=== PATIENT | male | born 1960 | race Caucasian/White ===

== ENCOUNTER 2017-08-17 15:35 | Inpatient (IN) | payer BC, OTHER ==
[~2017-08-17] VITALS: Ht 185.4 cm; Wt 97.1 kg
[~2017-08-17 15:35] MED LIST: DULO60CA6 PO; LEVO50TA5 PO; LISI40TA PO; OLAN5TAB3 PO; OMEP40CA5 PO; TADA10TA PO; VARE1TAB21 PO; ZOLP10TA PO
[2017-08-17] MEDS ORDERED: IV NORMAL SALINE 1,000ML 1,000 ML IV SCH (15:55)
[2017-08-17] MEDS ORDERED: VANCOMYCIN PER PHARMACY MC ONE (16:15)
[2017-08-17] MEDS ORDERED: AMPICILLIN 2 GM in IV NORMAL SALINE 100ML 100 ML IV ONE (16:15)
[2017-08-17] MEDS ORDERED: cefTRIAXone IV Push 2 GM VIAL. IVP ONE (16:30)
[2017-08-17] MEDS ORDERED: VANCOMYCIN 2 GM in IV NORMAL SALINE 500ML 500 ML IV ONE (16:30)
[2017-08-17 16:39] LABS: BASO % 0 % (0-3); EOS % 0 % (0-3); HEMATOCRIT 42.8 % (39.0-53.0); HEMOGLOBIN 15.4 g/dL (13.0-17.5); LYMPH # 0.8 x10^3/uL (1.0-4.8); LYMPH % 7 % (24-48); MEAN CORPUSCULAR HEMOGLOBIN 35 pg (25-35); MEAN CORPUSCULAR HGB CONC 36 g/dL (31-37); MEAN CORPUSCULAR VOLUME 97 fL (79-100); MONO # 0.6 x10^3/uL (0.0-1.1); MONO % 5 % (0-9); NEUT # 10.2 x10^3uL (1.8-7.7); NEUT % 88 % (31-73); PLATELET COUNT 132 x10^3/uL (140-400); RED BLOOD COUNT 4.41 x10^6/uL (4.30-5.70); RED CELL DISTRIBUTION WIDTH 12.7 % (11.5-14.5); WHITE BLOOD COUNT 11.6 x10^3/uL (4.0-11.0)
[2017-08-17] MEDS ORDERED: KETOROLAC 30 MG/ML VIAL. IV ONE (16:45)
[2017-08-17 16:46] LABS: CALCIUM 8.4 mg/dL (8.5-10.1); CREATININE 1.5 mg/dL (0.7-1.3); GFR 48.6
[2017-08-17 16:48] LABS: POTASSIUM 3.3 mmol/L (3.5-5.1)
[2017-08-17 17:11] LABS: INFLUENZA A PATIENT NEGATIVE (NEGATIVE); INFLUENZA B PATIENT NEGATIVE (NEGATIVE)
[2017-08-17] MEDS ORDERED: IV NORMAL SALINE 1,000ML 1,000 ML IV ONE (17:15)
[2017-08-17] MEDS ORDERED: ACETAMINOPHEN 500 MG TABLET PO ONE (17:45)
[2017-08-17] MEDS ORDERED: diphenhydrAMINE 50 MG/ML VIAL IVP ONE (17:45)
[2017-08-17] MEDS ORDERED: METOCLOPRAMIDE HCL 10 MG/2 ML VIAL. IV ONE (17:45)
[2017-08-17 18:06] LABS: CSF PROTEIN 63.1 mg/dL (15.0-45.0)
[2017-08-17 18:13] LABS: BILIRUBIN,URINE NEG (NEG); CLARITY,URINE CLOUDY; COLOR,URINE AMBER; GLUCOSE,URINE 500 mg/dL (NEG); NITRITE,URINE NEG (NEG); UROBILINOGEN,URINE 8 mg/dL (0.2 mg/dL)
[2017-08-17 18:14] LABS: BACTERIA,URINE 0 /HPF (0-FEW); RBC,URINE 20-40 /HPF (0-2); SQUAMOUS EPITHELIAL CELL,UR MOD /LPF
--- NOTE | 2017-08-17 18:17 | EKG ---
[address] [address] Test Date: 2017-08-17 Test Time: 16:04:43 Pat Name: SYDNEE BURNETTE Department: Room: Gender: M Customer Quality Specialist: PRINCESS : 1960 Requested By: TAMARA SABILLON Order Number: [id number] Reading MD: Measurements Intervals [place] Rate: 113 P: -13 MO: 122 QRS: -17 QRSD: 80 T: 34 QT: 304 QTc: 422 Interpretive Statements SINUS TACHYCARDIA LEFT ATRIAL ABNORMALITY LEFTWARD AXIS ABNORMAL ECG RI6.01 No previous ECG available for comparison
[2017-08-17 18:24] LABS: CSF CLARITY CLEAR; CSF COLOR COLORLESS
[2017-08-17] MEDS ORDERED: ONDANSETRON ODT 4 MG TAB.RAPDIS PO PRN (19:00)
[2017-08-17 19:40] VITALS: BP 101/71
[2017-08-17 19:42] LABS: CSF MON % 1 %; CSF PMN % 1 %; CSF RBC COUNT 9; CSF WBC COUNT 2
--- NOTE | 2017-08-17 20:03 | PHYS DOC ---
Past History Past Medical History: Diabetes, GERD, Hypertension Past Surgical History: No Surgical History Alcohol Use: Occasionally Drug Use: None Adult General Chief Complaint Chief Complaint: FEVER HPI HPI 57-year-old male presents with fever, neck pain, headache, and decreased balance. The patient was seen at [facility] yesterday where he had a workup that included head CT, lab work, and x-rays. We determined he had a sinus infection and placed him on Augmentin. The patient's headache has gotten significantly worse. His neck stiffness is worse. He continues to have a fever greater than 103. Patient had an appointment with his PCP this afternoon who sent him here to the ED for meningitis rule out. She rates the headache a 9 out of 10. His neck stiffness is 7 out of 10. He denies any recent long distance travel or international travel. He has not been in any known environment with sick individuals or high risk individuals. The patient is a regional account executive. There is no one else sick in his household. He has had a pneumonia vaccine in the past. He is unsure if he ever had the meningitis vaccine. He denies vomiting, diarrhea, constipation, dysuria, urinary frequency, cough, or congestion. Review of Systems Review of Systems Constitutional: Fever of 103+ [] Eyes: Denies change in visual acuity, redness, or eye pain [] HENT: Denies nasal congestion or sore throat, Has headache and neck pain[] Respiratory: Denies cough or shortness of breath [] Cardiovascular: No additional information not addressed in HPI [] GI: Denies abdominal pain, nausea, vomiting, bloody stools or diarrhea [] : Denies dysuria or hematuria [] Musculoskeletal: Denies back pain or joint pain [] Integument: Denies rash or skin lesions [] Neurologic: Denies headache, focal weakness or sensory changes [] Endocrine: Denies polyuria or polydipsia [] All other systems were reviewed and found to be within normal limits, except as documented in this note. Current Medications Current Medications Current Medications Medications (Trade) Dose Ordered Sig/José Miguel Start Time Stop Time Status Last Admin Dose Admin Acetaminophen (Tylenol) 1,000 mg 1X ONCE 08/17/17 17:45 08/17/17 17:46 DC 08/17/17 17:52 1,000 MG Ampicillin Sodium 2 gm/Sodium Chloride 100 ml @ 200 mls/hr 1X ONCE 08/17/17 16:15 08/17/17 16:44 DC 08/17/17 18:13 200 MLS/HR Ceftriaxone Sodium 2 gm/ Sodium Chloride 100 ml @ 200 mls/hr 1X ONCE 08/17/17 16:15 08/17/17 16:15 DC Ceftriaxone Sodium (Rocephin) 2 gm 1X ONCE 08/17/17 16:30 08/17/17 16:31 DC 08/17/17 17:53 2 GM Diphenhydramine HCl (Benadryl) 25 mg 1X ONCE 08/17/17 17:45 08/17/17 17:46 DC 08/17/17 17:53 25 MG Ketorolac Tromethamine (Toradol) 30 mg 1X ONCE 08/17/17 16:45 08/17/17 16:46 DC 08/17/17 16:38 30 MG Metoclopramide HCl (Reglan Vial) 10 mg 1X ONCE 08/17/17 17:45 08/17/17 17:46 DC 08/17/17 17:52 10 MG Sodium Chloride 1,000 ml @ 1,000 mls/hr 1X ONCE 08/17/17 17:15 08/17/17 18:14 DC 08/17/17 17:52 1,000 MLS/HR Vancomycin HCl (Vanco Per Pharmacy) 1 each 1X ONCE 08/17/17 16:15 08/17/17 16:16 DC Vancomycin HCl 2 gm/Sodium Chloride 500 ml @ 250 mls/hr 1X ONCE 08/17/17 16:30 08/17/17 18:29 DC 08/17/17 18:13 250 MLS/HR Allergies Allergies Allergies Coded Allergies Type Severity Reaction Last Updated Verified No Known Drug Allergies 10/10/13 No Physical Exam Physical Exam Constitutional: Well developed, well nourished, mild acute distress. [] HENT: Normocephalic, atraumatic, bilateral external ears normal, oropharynx moist, no oral exudates, nose normal. [] Eyes: PERRLA, EOMI, conjunctiva normal, no discharge. [] Neck: Normal range of motion, pain with ROM testing. Mild stiffness with passive ROM[] Cardiovascular:Heart rate regular rhythm, tachycardic, no murmur [] Lungs & Thorax: Bilateral breath sounds clear to auscultation [] Abdomen: Bowel sounds normal, soft, no tenderness, no masses, no pulsatile masses. [] Skin: Warm, moist, no rash. [] Back: No tenderness, no CVA tenderness. [] Extremities: No tenderness, no cyanosis, no clubbing, ROM intact, no edema. [] Neurologic: Alert and oriented X 3, normal motor function, normal sensory function, no focal deficits noted. [] Psychologic: Affect normal, judgement normal, mood normal. [] Current Patient Data Vital Signs Vital Signs Date Time Temp Pulse Resp B/P (MAP) Pulse Ox O2 Delivery O2 Flow Rate FiO2 08/17/17 19:20 106 20 119/68 (85) 94 Nasal Cannula 2.0 08/17/17 19:00 99.4 Lab Results Laboratory Tests Test 08/17/17 16:10 08/17/17 16:25 08/17/17 17:05 08/17/17 17:30 White Blood Count 11.6 x10^3/uL (4.0-11.0) H Red Blood Count 4.41 x10^6/uL (4.30-5.70) Hemoglobin 15.4 g/dL (13.0-17.5) Hematocrit 42.8 % (39.0-53.0) Mean Corpuscular Volume 97 fL (79-100) Mean Corpuscular Hemoglobin 35 pg (25-35) Mean Corpuscular Hemoglobin Concent 36 g/dL (31-37) Red Cell Distribution Width 12.7 % (11.5-14.5) Platelet Count 132 x10^3/uL (140-400) L Neutrophils (%) (Auto) 88 % (31-73) H Lymphocytes (%) (Auto) 7 % (24-48) L Monocytes (%) (Auto) 5 % (0-9) Eosinophils (%) (Auto) 0 % (0-3) Basophils (%) (Auto) 0 % (0-3) Neutrophils # (Auto) 10.2 x10^3uL (1.8-7.7) H Lymphocytes # (Auto) 0.8 x10^3/uL (1.0-4.8) L Monocytes # (Auto) 0.6 x10^3/uL (0.0-1.1) Eosinophils # (Auto) 0.0 x10^3/uL (0.0-0.7) Basophils # (Auto) 0.0 x10^3/uL (0.0-0.2) Sodium Level 129 mmol/L (136-145) L Potassium Level 3.3 mmol/L (3.5-5.1) L Chloride Level 90 mmol/L (98-107) L Carbon Dioxide Level 29 mmol/L (21-32) Anion Gap 10 (6-14) Blood Urea Nitrogen 18 mg/dL (8-26) Creatinine 1.5 mg/dL (0.7-1.3) H Estimated GFR (Cockcroft-Gault) 48.6 Glucose Level 234 mg/dL (70-99) H Lactic Acid Level 1.7 mmol/L (0.4-2.0) Calcium Level 8.4 mg/dL (8.5-10.1) L Influenza Type A (Rapid) Negative (NEGATIVE) Influenza Type B (Rapid) Negative (NEGATIVE) Urine Collection Type Unknown Urine Color Kaye Urine Clarity Cloudy Urine pH 5.5 Urine Specific [place] 1.025 Urine Protein >100 mg/dl (NEG-TRACE) Urine Glucose (UA) 500 mg/dL (NEG) Urine Ketones (Stick) 15 mg/dL (NEG) Urine Blood Large (NEG) Urine Nitrite Neg (NEG) Urine Bilirubin Neg (NEG) Urine Urobilinogen Dipstick 8 mg/dL (0.2 mg/dL) Urine Leukocyte Esterase Neg (NEG) Urine RBC 20-40 /HPF (0-2) Urine WBC 1-4 /HPF (0-4) Urine Squamous Epithelial Cells Mod /LPF Urine Bacteria 0 /HPF (0-FEW) CSF Tube Number 3 CSF Volume 4.5 CSF Color Colorless CSF Clarity Clear CSF WBC 2 CSF RBC 9 CSF Mononuclear WBCs % 1 % CSF Polynuclear WBCs (%) 1 % CSF Glucose 121 mg/dL (37-70) H CSF Total Protein 63.1 mg/dL (15.0-45.0) H EKG EKG [] Radiology/Procedures Radiology/Procedures Radiology results were reviewed from the hospital performed yesterday. I did not see evidence that the patient needed to be reimaged and exposed to further radiation.[] Course & Med Decision Making Course & Med Decision Making Pertinent Labs and Imaging studies reviewed. (See chart for details) Based on the workup previously performed with no source of infection definitively found and the patient's current symptoms, I am concerned about this patient having meningitis. His room was isolated and staff directed to take appropriate precautions. He continues to have a fever of 103 despite Toradol. We will perform a lumbar puncture. His rapid flu is negative. His lumbar labs are consistent with possible infection. I performed a lumbar puncture see a little. Patient had no complications. Initial lab results are indeterminant that suggest possible,viral or bacterial meningitis. Aseptic meningitis due to partial treatment with Augmentin as possible. The patient was started on ampicillin, Rocephin, and vancomycin per protocol. Patient was also given Tylenol. After the lumbar puncture, we treated his headache. He had significant improvement. Prior to admission his fever was below 100. I discussed the patient with the hospitalist, Dr. Shukla and he agreed to admit the patient to telemetry. The patient was in agreement with this plan. 45 minutes of critical care time was spent on this patient separate of other billable procedures. Puncture: I described the procedure in detail to the patient. I answered any questions he had prior to the procedure. A timeout was performed to confirm the correct patient, patient consent, and proper procedure. Patient was prepped with 3 iodine swabs. He was then draped in a sterile fashion. The skin and deeper tissue was numbed with 1% lidocaine. I inserted a 22-gauge by 3 and half inch needle in the L4-L5 space. Upon retraction of the stylette, I did have clear fluid on a single stick. I was able to provide 4 mL of fluid for each of the four vials. The needle was retracted and the wound covered with gauze and a Band-Aid. There were no complications. The patient was placed supine for 1 hour. His headache improved. Spinal fluid was sent to the lab for evaluation. [] Dragon Disclaimer Dragon Disclaimer This electronic medical record was generated, in whole or in part, using a voice recognition dictation system. Departure Departure: Impression: Primary Impression: Fever Disposition: ADMITTED INPATIENT Condition: STABLE TAMARA SABILLON DO August 17, 2017 20:03
[2017-08-17] MEDS ORDERED: DULO60CA44 PO (20:55)
[2017-08-17] MEDS ORDERED: OLAN10TA9 PO (20:55)
[2017-08-17] MEDS ORDERED: ZOLP10TA4 PO (20:55)
[2017-08-17] MEDS ORDERED: METF500T5 PO (20:55)
[2017-08-17] MEDS ORDERED: OMEP40CA5 PO (20:55)
[2017-08-17] MEDS ORDERED: LOSA1TAB22 PO (20:55)
[2017-08-17] MEDS ORDERED: DEXTROSE 50% 25 GM / 50ML DISP.SYRIN. IV PRN (21:45)
[2017-08-17] MEDS ORDERED: ZOLPIDEM 5 MG TABLET. ONE (22:19)
[2017-08-17] MEDS: IV NORMAL SALINE 1,000ML 1,000 ML IV SCH (22:24)
[2017-08-17] MEDS ORDERED: OLANZapine 10 MG TABLET PO SCH (22:30)
[2017-08-17] MEDS ORDERED: ZOLPIDEM 5 MG TABLET. PO SCH (22:30)
[2017-08-17] MEDS: INSULIN LISPRO 300 UNITS/3 ML INSULN.PEN. SQ SCH (22:30)
[2017-08-17 23:00] VITALS: BP 123/82
[2017-08-18 01:00] VITALS: BP 154/83
[2017-08-18] MEDS: ACETAMINOPHEN 325 MG TABLET PO PRN ×2 (01:21→05:50)
[2017-08-18] MEDS: IV NORMAL SALINE 1,000ML 1,000 ML IV SCH (03:00)
[2017-08-18 05:00] VITALS: BP 125/67
[2017-08-18 07:01] LABS: ALBUMIN 2.1 g/dL (3.4-5.0); ALBUMIN/GLOBULIN RATIO 0.5 (1.0-1.7); CALCIUM 7.6 mg/dL (8.5-10.1); CREATININE 1.4 mg/dL (0.7-1.3); GFR 52.6; POTASSIUM 3.2 mmol/L (3.5-5.1); TOTAL BILIRUBIN 0.8 mg/dL (0.2-1.0); TOTAL PROTEIN 6.5 g/dL (6.4-8.2)
[2017-08-18 07:13] LABS: BASO % 1 % (0-3); EOS % 0 % (0-3); HEMATOCRIT 40.8 % (39.0-53.0); HEMOGLOBIN 14.5 g/dL (13.0-17.5); LYMPH # 0.8 x10^3/uL (1.0-4.8); LYMPH % 9 % (24-48); MEAN CORPUSCULAR HEMOGLOBIN 35 pg (25-35); MEAN CORPUSCULAR HGB CONC 36 g/dL (31-37); MEAN CORPUSCULAR VOLUME 98 fL (79-100); MONO # 0.4 x10^3/uL (0.0-1.1); MONO % 4 % (0-9); NEUT # 7.5 x10^3uL (1.8-7.7); NEUT % 87 % (31-73); PLATELET COUNT 118 x10^3/uL (140-400); RED BLOOD COUNT 4.18 x10^6/uL (4.30-5.70); RED CELL DISTRIBUTION WIDTH 13.2 % (11.5-14.5); WHITE BLOOD COUNT 8.7 x10^3/uL (4.0-11.0)
[2017-08-18] MEDS ORDERED: PANTOPRAZOLE 40 MG TABLET. PO SCH (07:30)
[2017-08-18] MEDS ORDERED: LORazepam 2 MG/ML VIAL IV PRN ×2 (07:30)
[2017-08-18] MEDS ORDERED: diphenhydrAMINE 50 MG/ML VIAL IVP PRN (07:30)
[2017-08-18] MEDS ORDERED: chlordiazePOXIDE HCL 25 MG CAPSULE PO PRN ×2 (07:30)
[2017-08-18] MEDS ORDERED: HALOPERIDOL LACT 5 MG/ML VIAL. IM PRN (07:30)
[2017-08-18] MEDS ORDERED: POTASSIUM CHLORIDE 20 MEQ TABLET.ER. PO ONE (07:45)
[2017-08-18 07:49] VITALS: BP 140/74
[2017-08-18] MEDS: INSULIN LISPRO 300 UNITS/3 ML INSULN.PEN. SQ SCH ×2 (08:00→11:45)
[2017-08-18] MEDS ORDERED: VANCOMYCIN PER PHARMACY MC PRN (08:15)
[2017-08-18] MEDS: LORazepam 2 MG/ML VIAL IV PRN ×2 (08:30→09:50)
[2017-08-18] MEDS ORDERED: VANCOMYCIN 1.5 GM in IV NORMAL SALINE 500ML 500 ML IV SCH (09:00)
[2017-08-18] MEDS ORDERED: MVI, ADULT NO.4 WITH VIT K 10 ML, THIAMINE 100 MG, FOLIC ACID 1 MG in IV NORMAL SALINE ... IV SCH ×4 (09:00)
[2017-08-18] MEDS ORDERED: NICOTINE 21MG PATCH. TD SCH (09:00)
[2017-08-18] MEDS ORDERED: IBUPROFEN 800 MG TABLET. PO PRN (09:00)
[2017-08-18] MEDS ORDERED: LACTOBACILLUS RHAMNOSUS GG 1 CAPSULE. PO SCH (09:00)
[2017-08-18 09:06] LABS: % BANDS 14 % (0-9); % LYMPHS 11 % (24-48); % MONOS 5 % (0-10); % SEGS 69 % (35-66); PLT ESTIMATE ADEQUATE (ADEQUATE)
[2017-08-18] MEDS ORDERED: HALOPERIDOL LACT 5 MG/ML VIAL. IVP PRN (10:30)
[2017-08-18 10:49] VITALS: BP 138/75
--- NOTE | 2017-08-18 11:52 | SSS ---
ADMIT DATE: 08/18/2017 HISTORY OF PRESENT ILLNESS: The patient is a 57-year-old male patient, who apparently has been complaining of severe headache, dizziness and sinus pressure as well as headache. He apparently was evaluated initially in [facility] on 08/16/2017 where was extensively investigated. His lab work showed a white cell count 14,600 and he did have hyponatremia and hypokalemia also there. Apparently has had a CT scan of the head without contrast, which basically showed that brain morphology and attenuation characteristic are normal. There are no changes of acute hemorrhage, mass lesion or acute infarct. The ventricles and cisterns are normal. There are no abnormal extraaxial fluid collections, bone windows, no fractures. He apparently was given prescription for Augmentin 875 mg twice a day as well as prescription for hydrocodone and meclizine 25 mg 3 times a day and was discharged home only. Yesterday he went to his primary care physician stating that his headache and neck pain is worse, continued to be febrile, so he came to the Emergency Room of [facility] [place] and was evaluated further as the patient's headache has gotten significantly worse. His neck stiffness is worse. He continued to have fever greater than 103. In the Emergency Room of [facility] he has had lab work done, which showed that his white cell count is actually slightly down from 15,000 at the [facility] to 11,600. He continued to have the same values of hyponatremia and hypokalemia and slightly impaired kidney function. Because of the persistence of his symptoms decision was made to go ahead and do a lumbar puncture. His CSF was colorless, clear. There were only 2 WBCs, 1 mononuclear and 1 polymorphonuclear. The CSF glucose was 121. CSF protein was 63. He actually was continued on IV antibiotic as per protocol for meningitis. He was treated with vancomycin, Rocephin as well as Unasyn and was admitted to the ICU for further evaluation. Unfortunately, the patient also is alcoholic and was drinking a pint of whiskey and 12-pack of beer every day and went into delirium tremens. While in the ICU he also continued to have fever, although according to him, his headache and neck pain is much better, but he continued to spike temperature up to 104, 1.2 Fahrenheit and therefore a decision was made to transfer him to ICU at [facility] to settle the issue of meningitis/encephalitis and to consult Infectious Disease to assist with the management. PAST MEDICAL HISTORY: Significant for anxiety, bipolar disorder, depression, type 2 diabetes, hypothyroidism, gastroesophageal reflux disease and hypertension. PAST SURGICAL HISTORY: Unremarkable. FAMILY HISTORY: His mother was diagnosed with myocardial infarction in her 50s and underwent coronary artery bypass graft surgery. SOCIAL HISTORY: He apparently lives with his girlfriend, although he says she is his . He smokes 1-1/2 pack a day and has been a smoker for 27 years. Never used smokeless tobacco. The amount of alcohol he stated he thinking is quite variable, but he stated that he drinks pint of whiskey and 12-pack of beer. REVIEW OF SYSTEMS: By the time I saw him, the patient was actually somewhat confused and lethargic. He was already received 4 mg of Ativan and 5 mg of Haldol as he is very restless, agitated, pulling things up and down from the bed requiring constant attention with 1:1 sitter. PHYSICAL EXAMINATION: GENERAL: When I examined him, he looked well and was clearly in no apparent respiratory distress, no pallor, jaundice, cyanosis or thyromegaly. No jugular venous distention. No limb edema. VITAL SIGNS: His heart rate was 107, blood pressure was 125/67, temperature was 102, respiratory rate was 18 and oxygen saturation was 93% on 2.5 liters of oxygen. HEAD, EYES, EARS, NOSE AND THROAT: Showed normocephalic, atraumatic. There is no nuchal rigidity. HEART: Showed normal first and second heart sounds with no gallop, rub or murmur. CHEST: Clear to auscultation. No crepitation or rhonchi. ABDOMEN: Distended, soft, nontender. No guarding or rigidity. No organomegaly. All hernial orifice intact. Bowel sounds normal. NEUROLOGIC: The patient was lethargic, but arousable. He answered most questions appropriately, although he seemed to be disoriented to place. There was definitely no evidence of any neck rigidity and Kernig's sign was negative. All his cranial nerves are intact. He was able to move all his extremities without difficulty. LABORATORY DATA: He has had lab work done initially in the Emergency Room, which showed a white cell count of 11,600, hemoglobin 15, hematocrit 42, MCV 97 and platelet count of with a manual differential showed 88% polymorphs, 7% lymphocytes and 5% monocytes. His initial chemistry again showed that he is hyponatremic with serum sodium of 129, potassium is low at 3.3 as well as his chloride 90. His bicarbonate is 29, anion gap of 10, BUN 18, creatinine 1.5, estimated GFR was 48 mL per minute. His blood sugar was high at 234. However, lactic acid was normal at 1.7 and calcium was 8.4. His urinalysis showed the urine was macy, cloudy with a pH of 5.5, specific gravity of 1025. There was more than 100 mg of protein, more than 500 mg of glucose in the urine. There was large amount of blood, small amount of ketones. The urine was negative for nitrite, negative for leukocyte esterase were 20-40 rbc's, 1-4 wbc's, and no bacteria. His influenza A and B were negative. ASSESSMENT AND PLAN: The patient was admitted to ICU and was continued on IV vancomycin, ceftriaxone, did receive also a dose of Unasyn, put on alcohol withdrawal protocol as he continued to have spiking fever and he states it was somewhat partially treated meningitis or herpes simplex encephalitis. I decided to transfer the patient to [facility] ICU with a plan to consult Infectious Disease as well as neurologist. Continue with all his current medication. Continue with alcohol withdrawal. Continue to monitor his blood sugar. FINAL DISCHARGE DIAGNOSES: 1.Altered mental status. The patient was readmitted with possible meningitis; however, CSF results are unlikely, event represents partially treated meningitis given the time line. He continued to spike his temperature. He is very restless, agitated and his CSF protein was slightly high at 63. Although, his CSF cell count are only 2. 2.Meningitis very much less likely even partially treated. He has other medical problems including hypertension, type 2 diabetes, hypomagnesemia, hyponatremia, hypokalemia. He has also impaired kidney function. MARY BUCHANAN MD DR: ANNALISA/ferny JOB#: [id number] / [id number]
[2017-08-18] MEDS ORDERED: ACYCLOVIR SODIUM 800 MG in IV DEXTROSE 5% 250 ML IV SCH (12:00)
[2017-08-20 12:08] LABS: WEST NILE IGG CSF Negative (Negative); WEST NILE IGM CSF Negative (Negative)
== END 2017-08-18 13:30 | disposition short-term general hospital (02) | DRG 97 ==
LOC: ER 15:35 → ICU 18:30
PROVIDERS: ADMIT Internal Medicine; ATTEND Internal Medicine
PROC: 009U3ZX Drainage of Spinal Canal, Percutaneous Approach, Diagnostic (ICD-10-PCS; principal; 2017-08-17)
DX: G03.9 Meningitis, unspecified (principal); B00.4 Herpesviral encephalitis; F10.231 Alcohol dependence with withdrawal delirium; E87.1 Hypo-osmolality and hyponatremia; E83.42 Hypomagnesemia; E03.9 Hypothyroidism, unspecified; E11.9 Type 2 diabetes mellitus without complications; E87.6 Hypokalemia; F41.9 Anxiety disorder, unspecified; F31.9 Bipolar disorder, unspecified; I10 Essential (primary) hypertension; K21.9 Gastro-esophageal reflux disease without esophagitis; N28.9 Disorder of kidney and ureter, unspecified; Z82.49 Family history of ischemic heart disease and other diseases of the circulatory system; Z87.891 Personal history of nicotine dependence
CPT/HCPCS: 36415; 62270; 80048; 80053; 81001; 82945; 82947; 83605; 84157; 85007; 85025; 86788; 86789; 87040; 87071; 87075; 87641; 87804; 89051; 93005; 96365; 96375; J0133; J0290; J0696; J1200; J1630; J1815; J1885; J2060; J2765; J3370; J7040; 99291-25; J7030

== ENCOUNTER 2017-10-06 12:48 | Emergency (ER) | payer BC ==
[~2017-10-06] VITALS: Ht 182.9 cm; Wt 74.8 kg
[~2017-10-06 12:48] MED LIST changes: +DULO60CA44 PO; +LOSA1TAB22 PO; +METF500T5 PO; +OLAN10TA9 PO; +ZOLP10TA4 PO
--- NOTE | 2017-10-06 13:08 | PHYS DOC ---
Past History Past Medical History: Diabetes, GERD, Hypertension Past Surgical History: No Surgical History Alcohol Use: Occasionally Drug Use: None Adult General Chief Complaint Chief Complaint: SHORTNESS OF BREATH HPI HPI 57-year-old male who recently had been admitted to [facility] and then subsequently transferred to the [facility] with a prolonged course. He was admitted around August 192017 and discharged from the [facility] around September 22, 2017. The patient primarily was treated for respiratory failure bilateral pneumothoraces status post chest tubes and tracheostomy tube placement and removal. He had acute kidney injury hyponatremia hypokalemia and sepsis. He was on dialysis intermittently throughout his hospital course and had ARDS no alleviating the ER. He presented to clinic for follow-up visit and was found to be tachycardic reportedly in the 130s and was transferred here for evaluation and treatment. Upon arrival here the patient's heart rate is 86 and the patient is well-appearing and denies any symptoms other than mild dyspnea on exertion. He has been going to physical therapy and occupational therapy and reports generally improving. His purpose for his appointment was to follow-up for his recent hospitalization. Past medical history: Obstructive sleep apnea, alcohol abuse, history of pancreatitis, diabetic gastroparesis, type 2 diabetes, history of breast or failure, history of pneumothoraces, history of acute kidney disease now improving. htn. Past surgical history: History of bilateral chest tubes and tracheostomy. Allergies, no known drug allergies Social history: Patient endorses smoking but denies IV drug use. Patient drinks regularly. Review of systems is negative for chest pain abdominal pain nausea vomiting fevers chills. He denies neck stiffness confusion cyanosis or lethargy. All other review of systems is negative unless otherwise noted in history of present illness. ED course: 57-year-old gentleman presenting the emergency department today with mild dyspnea on exertion transferred here from clinic after being found to be tachycardic reportedly. On arrival the patient is not tachycardic and the patient is extremely well-appearing. EKG obtained and reviewed by myself shows sinus rhythm with a regular rate. Mild T-wave flattening in lead 3. ST segments are congruent. Not suggestive of ACS. IV fluids administered here in the emergency room. Patient's potassium was 2.9. EKG shows normal QTC and QRS is within normal limits. Patient was given IV potassium and oral potassium here in the emergency department. He did have some fluctuations of the patient's heart rate here in the emergency room. When he would stand up his heart rate would go to the 110s 120s. CTA diagram of the chest is negative for acute pulmonary embolism. CT of the chest shows nonspecific bronchiolitis and possible atypical pneumonia. Medically the patient is not febrile is not have a productive cough. Given his significant previous history, I felt it reasonable to admit the patient to the hospital for observation. The patient does not want to be admitted the hospital. I informed the patient of their right to a medical screening exam and any treatment and/or stabilization that may be necessary regardless of their ability to pay. The patient appears to have intact insight, judgment, and reason. In my opinion, this patient has the capacity to make decisions. The patient presented with dyspnea and was found to have significantly low potassium which I felt would be best replaced in the hospital along with concerning symptoms of dyspnea I felt warranted observation to the hospital. Particularly in the case of the patient's past medical history.. My initial plan prior to the pt expressing the desire to leave was to admit the patient for IV potassium and administration medical monitoring. I explained the risk of and disability to the patient in plain language which they were able to demonstrate in their own words verbal understanding. I discussed the limitations of the workup thus far included but were not limited to monitoring serial examinations and serial blood tests along with possible consultation of a net developer programmer or naphthalene operator. The pt has verbalized understanding of my concerns. I offered alternatives to the therapy including following up with his doctor tomorrow. I will prescribe the patient with oral potassium and oral antibiotics (possible atypical pna). I recommended the pt follow up with his doctor tomorrow. I explained that at any time if the patient changed their mind , we are always open and would be happy to have them back. The patient refused further care and then left against medical advice. Review of Systems Review of Systems SEE ABOVE. Allergies Allergies Allergies Coded Allergies Type Severity Reaction Last Updated Verified No Known Drug Allergies 10/10/13 No Physical Exam Physical Exam SEE ABOVE Constitutional: Well developed, well nourished, no acute distress, non-toxic appearance. [] HENT: Normocephalic, atraumatic, bilateral external ears normal, oropharynx moist, no oral exudates, nose normal. [] Eyes: PERRLA, EOMI, conjunctiva normal, no discharge. [] Neck: Normal range of motion, no tenderness, supple, no stridor. Negative Brudzinski's sign. Negative Kernig sign. Cardiovascular:Heart rate regular rhythm, no murmur [] Lungs & Thorax: Bilateral breath sounds clear to auscultation [] Abdomen: Bowel sounds normal, soft, no tenderness, no masses, no pulsatile masses. [] McBurney point is nontender. Negative Recinos sign. Skin: Warm, dry, no erythema No rashes. Back: No tenderness, no CVA tenderness. [] Extremities: No tenderness, no cyanosis, no clubbing, ROM intact, no edema. [] Neurologic: Alert and oriented X 3, normal motor function, normal sensory function, no focal deficits noted. [] Psychologic: Affect normal, judgement normal, mood normal. [] EKG EKG [] Radiology/Procedures Radiology/Procedures [] Course & Med Decision Making Course & Med Decision Making Pertinent Labs and Imaging studies reviewed. (See chart for details) [] Dragon Disclaimer Dragon Disclaimer This electronic medical record was generated, in whole or in part, using a voice recognition dictation system. Departure Departure: Impression: Primary Impression: Dyspnea Disposition: AGAINST MEDICAL ADVICE Condition: STABLE Referrals: SARITA TAVERAS APRN (PCP) Patient Instructions: Potassium (K), Potassium Content of Foods, Shortness of Breath, [id number] Additional Instructions: Thank you for allowing us to participate in your care today. Return to the emergency department you have any new or worsening symptoms, or if you are concerned for any reason. Return to emergency department if you have any new or concerning symptoms including but not limited to fever, chills, nausea, vomiting, intractable pain, any new rashes, chest pain, shortness of air , uncontrolled bleeding, difficulty breathing, and/or vision loss. Follow up with your primary care physician within 3 days. Call your Primary Doctor tomorrow and inform them of your visit today. If you do not have a primary care provider we are happy to provide you with a list of our primary care providers contact information. This condition should be evaluated by your primary care physician and any recommended consulting services for continued management within 2-3 days after discharge. If at any time, you are having difficulty getting into your primary care doctor or a specialist, return to the emergency department. Scripts Azithromycin (AZITHROMYCIN PACKET) 1 Gm Packet 1 PACKET PO ONCE, #1 PACKET Prov: STEVO ALANIS MD 10/06/17 Potassium Chloride (POTASSIUM CHLORIDE) 10 Meq Tablet.er 10 MEQ PO DAILY for 7 Days, #7 TAB Prov: STEVO ALANIS MD 10/06/17 STEVO ALANIS MD Oct 06, 2017 13:08
--- NOTE | 2017-10-06 13:13 | RAD ---
CHEST AP ONLY dated 10/06/2017 12:45 PM. Comparison: 12/19/2013 Clinical Indication: CHEST PAIN, SHORTNESS OF BREATH ON EXERTION Findings: Single upright portable exam performed. Heart and mediastinal contours are within normal limits. Lungs are clear without focal consolidation. Vascular interstitium within normal limits. No pleural effusion or pneumothorax. Impression: Negative portable chest. Electronically signed by: Иван Wilkerson MD (10/06/2017 1:09 PM) [id number]
[2017-10-06 13:33] LABS: BASO % 1 % (0-3); EOS # 0.2 x10^3/uL (0.0-0.7); EOS % 3 % (0-3); HEMATOCRIT 40.5 % (39.0-53.0); HEMOGLOBIN 13.9 g/dL (13.0-17.5); LYMPH # 3.5 x10^3/uL (1.0-4.8); LYMPH % 46 % (24-48); MEAN CORPUSCULAR HEMOGLOBIN 31 pg (25-35); MEAN CORPUSCULAR HGB CONC 34 g/dL (31-37); MEAN CORPUSCULAR VOLUME 91 fL (79-100); MONO # 0.8 x10^3/uL (0.0-1.1); MONO % 10 % (0-9); NEUT % 40 % (31-73); PLATELET COUNT 215 x10^3/uL (140-400); RED BLOOD COUNT 4.47 x10^6/uL (4.30-5.70); RED CELL DISTRIBUTION WIDTH 14.3 % (11.5-14.5); WHITE BLOOD COUNT 7.6 x10^3/uL (4.0-11.0)
[2017-10-06 13:53] LABS: ALBUMIN 3.3 g/dL (3.4-5.0); CALCIUM 9.9 mg/dL (8.5-10.1); CREATININE 1.1 mg/dL (0.7-1.3); DIRECT BILIRUBIN 0.1 mg/dL (0.0-0.2); GFR 69.5; TOTAL BILIRUBIN 0.4 mg/dL (0.2-1.0); TOTAL PROTEIN 8.4 g/dL (6.4-8.2)
[2017-10-06 13:54] LABS: POTASSIUM 2.9 mmol/L (3.5-5.1)
[2017-10-06] MEDS ORDERED: IV NORMAL SALINE 500ML 500 ML IV ONE (14:15)
[2017-10-06 14:19] LABS: BILIRUBIN,URINE NEG (NEG); CLARITY,URINE HAZY; COLOR,URINE YELLOW; GLUCOSE,URINE NEG (NEG)
[2017-10-06 14:20] LABS: BACTERIA,URINE FEW /HPF (0-FEW); GRANULAR CASTS,URINE OCC /HPF; HYALINE CASTS, URINE MOD /HPF; NITRITE,URINE NEG (NEG); SQUAMOUS EPITHELIAL CELL,UR FEW /LPF; UROBILINOGEN,URINE 0.2 mg/dL (0.2 mg/dL)
[2017-10-06] MEDS ORDERED: POTASSIUM CHLORIDE 20 MEQ/15 ML ORAL LIQUID. PO ONE (14:30)
[2017-10-06] MEDS ORDERED: POTASSIUM CL 40MEQ IN 0.9%NACL 1,000 ML IV ONE (14:30)
[2017-10-06] MEDS ORDERED: IOHEXOL 300 MG/ML 75 ML VIAL. IV ONE (15:30)
[2017-10-06 16:00] VITALS: BP 153/93
--- NOTE | 2017-10-06 16:05 | EKG ---
[address] [address] Test Date: 2017-10-06 Test Time: 12:53:16 Pat Name: SYDNEE BURNETTE Department: Room: Gender: M [employer]: PRINCESS : 1960 Requested By: STEVO ALANIS Order Number: [id number] Reading MD: Measurements Intervals [place] Rate: 82 P: 30 WV: 148 QRS: -12 QRSD: 86 T: 41 QT: 358 QTc: 421 Interpretive Statements SINUS RHYTHM LEFTWARD AXIS NO SPECIFIC ECG ABNORMALITIES RI6.01 No previous ECG available for comparison
--- NOTE | 2017-10-06 16:22 | RAD ---
PQRS Compliance Statement: One or more of the following individualized dose reduction techniques were utilized for this examination: 1. Automated exposure control 2. Adjustment of the mA and/or kV according to patient size 3. Use of iterative reconstruction technique CT CHEST WITH CONTRAST, PULMONARY ANGIOGRAM History: SHORT OF AIR, CHEST PAIN Comparison: None. Technique: Helical CT of the chest was performed after the administration of 75 cc Omnipaque 300 intravenous contrast according to protocol. Axial and coronal reconstructions were obtained. 3-D MIP images were constructed to better evaluate the pulmonary arteries. Findings: Pulmonary arteries are adequately opacified. There is no evidence of pulmonary embolism. No thoracic aortic dissection. There are numerous mostly subcentimeter mediastinal lymph nodes. There is a 16 mm subcarinal lymph node. Subcentimeter bilateral hilar lymph nodes. 11 mm lower right paratracheal lymph node. There is coronary artery disease. Cardiac size normal, small pericardial effusion. There is no pleural effusion. The central airways are patent. There are groundglass or reticular opacities in the periphery of the bilateral upper lobes. There are reticular nodular opacities in the periphery of the right lower lobe medially. There are groundglass opacities and reticular nodular opacities with tree-in-bud configuration in the left lower lobe. There is atelectasis in the posterior left lower lobe inferiorly. Visualized upper abdomen unremarkable. Degenerative endplate spurring in the thoracic spine. Schmorl's node superior endplate of T4. IMPRESSION: 1. There is no CT evidence of pulmonary embolus. 2. There are reticular nodular opacities with tree-in-bud configuration in the left lower lobe compatible with nonspecific bronchiolitis. 3. There are scattered groundglass and reticular opacities in the periphery of the bilateral upper lobes. Groundglass opacities in the left lower lobe. Considerations include nonspecific pneumonitis, atypical pneumonia, or pulmonary edema. 4. There are a couple of mildly enlarged mediastinal lymph nodes, may be reactive. 5. Small pericardial effusion. 6. Recommend noncontrast CT chest follow-up 2-3 months after completion of medical therapy. Electronically signed by: Glynn Hendricks MD (10/06/2017 4:18 PM) [facility]
[2017-10-06] MEDS ORDERED: AZIT1PAC9 PO (16:27)
[2017-10-06] MEDS ORDERED: POTA10TA10 PO (16:27)
== END 2017-10-06 16:05 | disposition left against medical advice (07) ==
LOC: ER 12:48
DX: R06.00 Dyspnea, unspecified (principal); R00.0 Tachycardia, unspecified; E11.9 Type 2 diabetes mellitus without complications; K21.9 Gastro-esophageal reflux disease without esophagitis; I10 Essential (primary) hypertension
CPT/HCPCS: 36415; 71045; 71275; 80048; 80076; 81001; 83605; 83690; 83880; 84484; 85025; 87086; 93005; 96361; 96365; 99285; J7040; Q9967

== ENCOUNTER 2020-11-27 08:16 | Emergency (ER) | payer BC ==
[~2020-11-27] VITALS: Ht 185.4 cm; Wt 92.8 kg
[~2020-11-27 08:16] MED LIST changes: +AZIT1PAC9 PO; -DULO60CA44 PO; +DULO60CA98 PO; -LISI40TA PO; +LISI40TA6 PO; +METF500T16 PO; -METF500T5 PO; +OLAN10TA69 PO; -OLAN10TA9 PO; -OMEP40CA5 PO; +OMEP40CA7 PO; +POTA10TA10 PO
[2020-11-27 08:39] VITALS: BP 146/101
[2020-11-27] MEDS ORDERED: IV NORMAL SALINE 1,000ML 1,000 ML IV ONE (08:45)
--- NOTE | 2020-11-27 09:12 | PHYS DOC ---
Past History Past Medical History: Diabetes, GERD, Hypertension Past Surgical History: No Surgical History Alcohol Use: Heavy Drug Use: None General Adult EDM: Chief Complaint: DIZZY/LIGHT HEADED HPI: HPI: 60-year-old male presents with dizziness, fatigue, left lower quadrant abdominal pain. Patient started having mild left lower quadrant abdominal cramping yesterday. Is persistent but not intense. He also felt fatigued and had some runny stools over the weekend. He went to the ER today because he had an episode of dizziness with his fatigue. The patient is not vaccinated for COVID- 19. He denies shortness of breath or cough. No known fever at home. He is a daily alcohol drinker. Last drink was last night. Review of Systems: Review of Systems: Constitutional: Denies fever or chills. Fatigue. Eyes: Denies change in visual acuity HENT: Denies nasal congestion or sore throat Respiratory: Denies cough or shortness of breath Cardiovascular: Denies chest pain or edema GI: Left lower quadrant abdominal pain. Denies nausea, vomiting, bloody stools or diarrhea : Denies dysuria Musculoskeletal: Denies back pain or joint pain Integument: Denies rash Neurologic: Denies headache, focal weakness or sensory changes Endocrine: Denies polyuria or polydipsia Lymphatic: Denies swollen glands Psychiatric: Denies depression or anxiety Current Medications: Current Meds: Current Medications Medications (Trade) Dose Ordered Sig/José Miguel Start Time Stop Time Status Last Admin Dose Admin Sodium Chloride 1,000 ml @ 1,000 mls/hr 1X ONCE 11/27/20 08:45 11/27/20 09:44 11/27/20 08:45 1,000 MLS/HR Allergies: Allergies: Allergies Coded Allergies Type Severity Reaction Last Updated Verified No Known Drug Allergies 10/10/13 No Physical Exam: PE: Constitutional: Well developed, well nourished, no acute distress, non-toxic appearance. [] HENT: Normocephalic, atraumatic, bilateral external ears normal, oropharynx moist, no oral exudates, nose normal. [] Eyes: PERRLA, EOMI, conjunctiva normal, no discharge. [] Neck: Normal range of motion, no tenderness, supple, no stridor. [] Cardiovascular: Heart rate 120, regular rhythm, no murmur [] Lungs & Thorax: Bilateral breath sounds clear to auscultation [] Abdomen: Bowel sounds normal, soft, mild left lower quadrant tenderness, no masses, no pulsatile masses. [] Skin: Warm, dry, no erythema, no rash. [] Back: No tenderness, no CVA tenderness. [] Extremities: No tenderness, no cyanosis, no clubbing, ROM intact, no edema. [] Neurologic: Alert and oriented X 3, normal motor function, normal sensory function, no focal deficits noted. [] Psychologic: Affect normal, judgement normal, mood normal. [] Current Patient Data: Vital Signs: Vital Signs Date Time Temp Pulse Resp B/P (MAP) Pulse Ox O2 Delivery O2 Flow Rate FiO2 11/27/20 08:39 97.5 144 28 146/101 98 EKG: EKG: [] Radiology/Procedures: Radiology/Procedures: [] Impressions: PQRS Compliance Statement: One or more of the following individualized dose reduction techniques were utilized for this examination: 1. Automated exposure control 2. Adjustment of the mA and/or kV according to patient size 3. Use of iterative reconstruction technique CT abdomen/pelvis with contrast 11/27/2020 9:27 AM INDICATION: Left lower quadrant pain COMPARISON: None available TECHNIQUE: Multiple axial CT images of the abdomen and pelvis were obtained after the intravenous administration of nonionic contrast. Coronal and sagittal reformats are provided. FINDINGS: Lungs are clear. Heart size within normal limits. Hypoattenuation the hepatic parenchyma suggestive of hepatic steatosis. This focal fatty sparing along the gallbladder fossa. Calcifications within the spleen suggest sequela prior granulomatous exposure. Adrenal glands are normal in appearance. Pancreas and gallbladder are normal in appearance. Mild ectasia of infrarenal abdominal aorta measures up to 2.4 x 2.5 cm. Moderate calcified plaque identified along the abdominal aorta. No pathologically enlarged lymph nodes are identified along the abdomen and pelvis. There is no free fluid or free intraperitoneal air. Small and large bowel are normal in caliber. There is no evidence for bowel obstruction. There are no pericolonic inflammatory changes. A normal, nondilated appendix is visualized without adjacent inflammatory changes. The kidneys enhance symmetrically. There is no suspicious renal mass. There is no hydronephrosis. There are no suspected calculi within the kidneys, ureters or urinary bladder. Urinary bladder is within normal limits given degree of distention. Moderate left and small right fat-containing inguinal hernia. There is grade 1 anterolisthesis of L4 on L5 with diffuse sclerosis involving the L4 and L5 vertebral bodies which could be secondary to advanced degenerative disc disease. There is moderate severe bilateral neuroforaminal stenosis at L4-L5. IMPRESSION: 1. No acute abnormality is identified in abdomen and pelvis. 2. These hepatic steatosis. 3. Ectasia of infrarenal abdominal aorta measuring 2.4 x 2.5 cm. 4. Advanced degenerative disc disease at L4-L5. There is suggestion of moderate to severe bilateral neuroforaminal stenosis at L4-L5. Sclerotic changes of the L4 and L5 vertebral bodies may reflect degenerative spondylotic changes. Electronically signed by: Jesús Smith MD (11/27/2020 10:38 AM) [id number] DICTATED AND SIGNED BY: JESÚS SMITH MD DATE: 11/27/20 1001 CC: DHIRAJ ESQUIVEL MD; TAMARA SABILLON DO ~MTH0 0 Heart Score: C/O Chest Pain: N/A Risk Factors: Risk Factors: DM, Current or recent (<one month) smoker, HTN, HLP, family history of CAD, obesity. Risk Scores: Score 0 - 3: 2.5% MACE over next 6 weeks - Discharge Home Score 4 - 6: 20.3% MACE over next 6 weeks - Admit for Clinical Observation Score 7 - 10: 72.7% MACE over next 6 weeks - Early Invasive Strategies Course & Med Decision Making: Course & Med Decision Making Pertinent Labs and Imaging studies reviewed. (See chart for details) The patient's labs are unremarkable except for slightly elevated liver enzymes. This is expected with his alcohol consumption. His lipase is within normal limits. His CT shows no acute findings. The patient's symptoms are likely COVID-19. I have advised that he isolate at home to get this test result tomorrow. He is stable for discharge at this time. [] Dragon Disclaimer: Dragon Disclaimer: This electronic medical record was generated, in whole or in part, using a voice recognition dictation system. Departure Departure: Impression: Primary Impression: Suspected 2019 novel coronavirus infection Additional Impression: Elevated liver enzymes Disposition: HOME / SELF CARE / HOMELESS Condition: STABLE Referrals: DHIRAJ ESQUIVEL MD (PCP) Additional Instructions: You have been tested for or diagnosed with COVID-19. It is an infection caused by a new type of coronavirus. COVID-19 will cause cold-like or mild flu symptoms in most. It can cause more severe symptoms like problems breathing in some. There is no treatment for COVID-19. The body will clear the infection over time. Self-care will help to ease discomfort. Steps to Take: Self-Care Rest as needed. Healthy habits may help you feel better. Steps include: Choose healthy foods including fruits and vegetables. Drink water throughout the day. Get plenty of sleep each night. If you smoke, try to quit. It may ease breathing. Avoid alcohol. Keep Others Healthy The virus can spread to others. Droplets are released every time you sneeze or cough. The droplets can get into the mouth, nose, or eyes of people near you and lead to infection. To lower the chances of spreading COVID-19 to others: Stay at home until your doctor has said it is safe to leave. If you tested positive this will mean staying isolated until both of the following are true: At least 7 days have passed since the start of illness. You are free of fever for at least 72 hours without the use of medicine. During this time: - Avoid public areas, events, or transportation. Do not return to work or school until your doctor has said it is safe to do so. - Call ahead if you need to go to a medical center. Let them know you may have COVID-19. It will help them guide you where to go. They may also ask you to wear a facemask when you come to the office. - If you call for emergency medical services, let them know you may have COVID- 19. While at home: - Try to avoid close contact with others. Stay about 6 feet away. - If possible, spend most of your time in a separate room from others. - Use a face mask if you will be in close contact with others such as sharing a room or vehicle. - Have someone wipe down common surfaces in the home. Use household welding machine setter every day on areas like doorknobs, counters, or sinks. - Cough or sneeze into a tissue. Throw the tissue away right after use. If a tissue is not available, cough or sneeze into your elbow. - Wash your hands often. Wash them after sneezing or coughing. Use soap and water and wash for at least 20 seconds. Alcohol based hand radiator cleaner can be used if soap and water is not available. - Do not prepare food for others. Avoid sharing personal items like forks, spoons, or toothbrushes. - Avoid close contact with pets while you are sick. There is no evidence of the virus passing to pets. This is a safety step until more is known about this virus. Isolation can be frustrating. Social interaction can help. Keep in touch with friends and family through phone and tech options. You can still interact with others in your home, just keep a safe distance of about 6 feet. Follow-up: Your doctors office will check in with you to see if there are any changes in your health. You may be asked to keep track of symptoms to share with them. They will also let you know when you are clear to be in public again. Problems to Look Out For: Contact your doctor if your recovery is not going as you expect. Get emergency care if you have problems such as: - Trouble breathing - Nonstop chest pain or pressure - Changes in awareness, confusion, or problems waking - Lips or face have bluish color - Worsening of symptoms If you think you have an emergency, call for emergency medical services right away. As taken from [facility] TAMARA SABILLON DO Nov 27, 2020 09:12
[2020-11-27 09:15] LABS: BASO % 0 % (0-3); EOS # 0.1 x10^3/uL (0.0-0.7); EOS % 1 % (0-3); HEMATOCRIT 48.6 % (39.0-53.0); HEMOGLOBIN 17.2 g/dL (13.0-17.5); LYMPH # 2.7 x10^3/uL (1.0-4.8); LYMPH % 36 % (24-48); MEAN CORPUSCULAR HEMOGLOBIN 35 pg (25-35); MEAN CORPUSCULAR HGB CONC 35 g/dL (31-37); MEAN CORPUSCULAR VOLUME 99 fL (79-100); MONO # 0.4 x10^3/uL (0.0-1.1); MONO % 6 % (0-9); NEUT # 4.3 x10^3uL (1.8-7.7); NEUT % 57 % (31-73); PLATELET COUNT 223 x10^3/uL (140-400); RED CELL DISTRIBUTION WIDTH 13.2 % (11.5-14.5); WHITE BLOOD COUNT 7.5 x10^3/uL (4.0-11.0)
[2020-11-27] MEDS ORDERED: IOHEXOL 300 MG/ML 75 ML VIAL. IV ONE (09:30)
[2020-11-27 09:45] LABS: ALBUMIN 3.9 g/dL (3.4-5.0); ALBUMIN/GLOBULIN RATIO 0.9 (1.0-1.7); CALCIUM 8.4 mg/dL (8.5-10.1); CREATININE 1.3 mg/dL (0.7-1.3); GFR 56.7; TOTAL BILIRUBIN 0.8 mg/dL (0.2-1.0); TOTAL PROTEIN 8.4 g/dL (6.4-8.2)
--- NOTE | 2020-11-27 10:41 | RAD ---
PQRS Compliance Statement: One or more of the following individualized dose reduction techniques were utilized for this examinat ion: 1. Automated exposure control 2. Adjustment of the mA and/or kV according to patient size 3. Use of iterative reconstruction technique CT abdomen/pelvis with contrast 11/27/2020 9:27 AM INDICATION: Left lower quadrant pain COMPARISON: None available TECHNIQUE: Multiple axial CT images of the abdomen and pelvis were obtained after the intravenous adm inistration of nonionic contrast. Coronal and sagittal reformats are provided. FINDINGS: Lungs are clear. Heart size within normal limits. Hypoattenuation the hepatic parenchyma suggestive o f hepatic steatosis. This focal fatty sparing along the gallbladder fossa. Calcifications within the spleen suggest sequela prior granulomatous exposure. Adrenal glands are normal in appearance. Pancrea s and gallbladder are normal in appearance. Mild ectasia of infrarenal abdominal aorta measures up to 2.4 x 2.5 cm. Moderate calcified plaque bk ntified along the abdominal aorta. No pathologically enlarged lymph nodes are identified along the ab domen and pelvis. There is no free fluid or free intraperitoneal air. Small and large bowel are ayanna l in caliber. There is no evidence for bowel obstruction. There are no pericolonic inflammatory scott es. A normal, nondilated appendix is visualized without adjacent inflammatory changes. The kidneys en sean symmetrically. There is no suspicious renal mass. There is no hydronephrosis. There are no susp ected calculi within the kidneys, ureters or urinary bladder. Urinary bladder is within normal limits given degree of distention. Moderate left and small right fat-containing inguinal hernia. There is g rade 1 anterolisthesis of L4 on L5 with diffuse sclerosis involving the L4 and L5 vertebral bodies wh ich could be secondary to advanced degenerative disc disease. There is moderate severe bilateral neur oforaminal stenosis at L4-L5. IMPRESSION: 1. No acute abnormality is identified in abdomen and pelvis. 2. These hepatic steatosis. 3. Ectasia of infrarenal abdominal aorta measuring 2.4 x 2.5 cm. 4. Advanced degenerative disc disease at L4-L5. There is suggestion of moderate to severe bilateral n euroforaminal stenosis at L4-L5. Sclerotic changes of the L4 and L5 vertebral bodies may reflect dege nerative spondylotic changes. Electronically signed by: Kiersten Smith MD (11/27/2020 10:38 AM) [id number]
== END 2020-11-27 12:10 | disposition home or self-care (01) ==
LOC: ER 08:16
DX: R74.8 Abnormal levels of other serum enzymes (principal); E11.9 Type 2 diabetes mellitus without complications; K21.9 Gastro-esophageal reflux disease without esophagitis; I10 Essential (primary) hypertension; Z20.822 Contact with and (suspected) exposure to COVID-19
CPT/HCPCS: 36415; 74177; 80053; 83690; 85025; 87040; 87426; 96360; 99285; G0480; J7030; Q9967; U0003

== ENCOUNTER 2021-02-02 13:12 | Observation (INO) | payer BC, OTHER ==
[~2021-02-02] VITALS: Ht 182.9 cm; Wt 92.3 kg
[~2021-02-02 13:12] MED LIST changes: -DULO60CA6 PO; +DULO60CA7 PO
[2021-02-02] MEDS ORDERED: LORazepam 1 MG TABLET PO ONE (14:15)
[2021-02-02 14:50] LABS: BASO # 0.1 x10^3/uL (0.0-0.2); BASO % 1 % (0-3); EOS % 0 % (0-3); HEMATOCRIT 47.6 % (39.0-53.0); HEMOGLOBIN 16.9 g/dL (13.0-17.5); LYMPH % 24 % (24-48); MEAN CORPUSCULAR HEMOGLOBIN 36 pg (25-35); MEAN CORPUSCULAR HGB CONC 36 g/dL (31-37); MEAN CORPUSCULAR VOLUME 100 fL (79-100); MONO # 0.6 x10^3/uL (0.0-1.1); MONO % 8 % (0-9); NEUT # 5.7 x10^3uL (1.8-7.7); NEUT % 68 % (31-73); PLATELET COUNT 202 x10^3/uL (140-400); RED BLOOD COUNT 4.75 x10^6/uL (4.30-5.70); RED CELL DISTRIBUTION WIDTH 13.7 % (11.5-14.5); WHITE BLOOD COUNT 8.4 x10^3/uL (4.0-11.0)
[2021-02-02 14:58] LABS: CALCIUM 8.2 mg/dL (8.5-10.1); CREATININE 1.3 mg/dL (0.7-1.3); GFR 56.7; POTASSIUM 3.2 mmol/L (3.5-5.1)
[2021-02-02 15:06] LABS: ALBUMIN/GLOBULIN RATIO 0.8 (1.0-1.7)
[2021-02-02 15:27] LABS: ALBUMIN 3.6 g/dL (3.4-5.0); TOTAL BILIRUBIN 0.9 mg/dL (0.2-1.0); TOTAL PROTEIN 7.9 g/dL (6.4-8.2)
[2021-02-02] MEDS ORDERED: IV NORMAL SALINE 1,000ML 1,000 ML IV ONE (15:30)
--- NOTE | 2021-02-02 15:37 | PHYS DOC ---
Past History Past Medical History: Diabetes, GERD, Hypertension (YESENIA LI APRN) Past Surgical History: No Surgical History (YESENIA LI APRN) Alcohol Use: Occasionally Drug Use: None (YESENIA LI APRN) General Adult EDM: Chief Complaint: ANXIETY/PANIC ATTACK HPI: HPI: Patient is a 60-year-old male who presents with alcohol abuse. Patient is requesting to be admitted for rehab. Patient states he is a daily drinker and drinks a pint of whiskey daily. Patient also smokes 1 to 1-1/2 packs of cigarettes a day. Patient has had alcohol withdrawal symptoms in the past. Denies any seizures. Patient is reporting anxiety and irritability at this time. Denies HI or SI. History of hypertension, diabetes, GERD, alcoholism. (YESENIA LI APRN) Review of Systems: Review of Systems: ROS At least 10 ROS systems have been reviewed and are negative except as documented in the HPI. General: Negative except as outlined in HPI above. Skin: Negative except as outlined in HPI above. HEENT: Negative except as outlined in HPI above. Neck: Negative except as outlined in HPI above. Respiratory: Negative except as outlined in HPI above.. Cardiovascular: Negative except as outlined in HPI above. Abdomen: Negative except as outlined in HPI above. : Negative except as outlined in HPI above. Back/MSK: Negative except as outlined in HPI above. Neuro: Negative except as outlined in HPI above. Psych: Negative except as outlined in HPI above. (YESENIA LI APRN) Current Medications: Current Meds: Current Medications Medications (Trade) Dose Ordered Sig/José Miguel Start Time Stop Time Status Last Admin Dose Admin Lorazepam (Ativan) 1 mg 1X ONCE 02/02/21 14:15 02/02/21 14:16 DC 02/02/21 14:26 1 MG Sodium Chloride 1,000 ml @ 1,000 mls/hr 1X ONCE 02/02/21 15:30 02/02/21 16:29 UNV (YESENIA LI APRN) Allergies: Allergies: Allergies Coded Allergies Type Severity Reaction Last Updated Verified No Known Drug Allergies 10/10/13 No (YESENIA LI APRN) Physical Exam: PE: Constitutional: Well developed, well nourished, no acute distress, non-toxic appearance. [] HENT: Normocephalic, atraumatic, bilateral external ears normal, oropharynx moist, no oral exudates, nose normal. [] Eyes: PERRLA, EOMI, conjunctiva normal, no discharge. [] Neck: Normal range of motion, no tenderness, supple, no stridor. [] Cardiovascular:Heart rate regular rhythm, no murmur [] Lungs & Thorax: Bilateral breath sounds clear to auscultation [] Abdomen: Bowel sounds normal, soft, no tenderness, no masses, no pulsatile masses. [] Skin: Warm, dry, no erythema, no rash. [] Back: No tenderness, no CVA tenderness. [] Extremities: No tenderness, no cyanosis, no clubbing, ROM intact, no edema. [] Neurologic: Alert and oriented X 3, normal motor function, normal sensory function, no focal deficits noted. [] Psychologic: Patient is tearful and anxious mood (YESENIA LI APRN) Current Patient Data: Labs: Laboratory Tests Test 02/02/21 14:27 White Blood Count 8.4 x10^3/uL (4.0-11.0) Red Blood Count 4.75 x10^6/uL (4.30-5.70) Hemoglobin 16.9 g/dL (13.0-17.5) Hematocrit 47.6 % (39.0-53.0) Mean Corpuscular Volume 100 fL (79-100) Mean Corpuscular Hemoglobin 36 pg (25-35) H Mean Corpuscular Hemoglobin Concent 36 g/dL (31-37) Red Cell Distribution Width 13.7 % (11.5-14.5) Platelet Count 202 x10^3/uL (140-400) Neutrophils (%) (Auto) 68 % (31-73) Lymphocytes (%) (Auto) 24 % (24-48) Monocytes (%) (Auto) 8 % (0-9) Eosinophils (%) (Auto) 0 % (0-3) Basophils (%) (Auto) 1 % (0-3) Neutrophils # (Auto) 5.7 x10^3uL (1.8-7.7) Lymphocytes # (Auto) 2.0 x10^3/uL (1.0-4.8) Monocytes # (Auto) 0.6 x10^3/uL (0.0-1.1) Eosinophils # (Auto) 0.0 x10^3/uL (0.0-0.7) Basophils # (Auto) 0.1 x10^3/uL (0.0-0.2) Sodium Level 125 mmol/L (136-145) L Potassium Level 3.2 mmol/L (3.5-5.1) L Chloride Level 91 mmol/L (98-107) L Carbon Dioxide Level 20 mmol/L (21-32) L Anion Gap 14 (6-14) Blood Urea Nitrogen 27 mg/dL (8-26) H Creatinine 1.3 mg/dL (0.7-1.3) Estimated GFR (Cockcroft-Gault) 56.7 BUN/Creatinine Ratio 21 (6-20) H Glucose Level 167 mg/dL (70-99) H Calcium Level 8.2 mg/dL (8.5-10.1) L Total Bilirubin Pending Aspartate Amino Transferase (AST) Pending Alanine Aminotransferase (ALT) Pending Alkaline Phosphatase Pending Total Protein Pending Albumin Pending Albumin/Globulin Ratio Pending Lipase Pending Vital Signs: Vital Signs Date Time Temp Pulse Resp B/P (MAP) Pulse Ox O2 Delivery O2 Flow Rate FiO2 02/02/21 13:23 98.0 98 18 170/108 (128) 98 Room Air (YESENIA LI APRN) EKG: EKG: [] (YESENIA LI APRN) Radiology/Procedures: Radiology/Procedures: [] (YESENIA LI APRN) Heart Score: C/O Chest Pain: No Risk Factors: Risk Factors: DM, Current or recent (<one month) smoker, HTN, HLP, family history of CAD, obesity. Risk Scores: Score 0 - 3: 2.5% MACE over next 6 weeks - Discharge Home Score 4 - 6: 20.3% MACE over next 6 weeks - Admit for Clinical Observation Score 7 - 10: 72.7% MACE over next 6 weeks - Early Invasive Strategies (YESENIA LI APRN) Course & Med Decision Making: Course & Med Decision Making Pertinent Labs and Imaging studies reviewed. (See chart for details) [] 60-year-old male presents with anxiety and alcohol abuse. Patient is wanting to be admitted to detox. Basic labs in the emergency room were drawn for medical clearance. Sodium of 125. Patient given normal saline bolus. Potassium 3.2, mag 1.7. Patient given 2 g of magnesium and 40 mEq of potassium. Patient currently takes losartan, Cymbalta, omeprazole, olanzapine. Patient has a history of diabetes, high blood pressure, GERD, anxiety and depression. Discussed results with patient, advised patient he would most likely need to stay overnight for hyponatremia, alcohol withdrawal. Spoke with Dr. Sofia who will be accepting patient at [facility]. (YESENIA LI APRN) Course & Med Decision Making I was the Attending physician on the above date of service of this patient. This patient was evaluated, examined, treated, and dispositioned from the emergency department by the mid-level practitioner. Although I was working at the time , no assistance was requested. Electronically signed, Jannie Robertson DO (JANNIE ROBERTSON DO) Avinash Disclaimer: Avinash Disclaimer: This electronic medical record was generated, in whole or in part, using a voice recognition dictation system. (YESENIA LI APRN) Departure Departure: Impression: Primary Impression: Hyponatremia Additional Impression: Alcohol withdrawal Qualified Codes: F10.230 - Alcohol dependence with withdrawal, uncomplicated Disposition: ADMITTED INPATIENT Admitting Physician: Tomy Shukla (YESENIA LI APRN) Condition: STABLE Referrals: DHIRAJ ESQUIVEL MD (PCP) YESEINA LI APRN Feb 02, 2021 15:37 JANNIE ROBERTSON DO Feb 03, 2021 08:18
[2021-02-02 15:50] LABS: BARBITURATES NEG (NEG); BENZODIAZEPINES NEG (NEG); CANNABINOIDS NEG (NEG); COCAINE NEG (NEG); METHADONE NEG (NEG); OPIATES NEG (NEG); PHENCYCLIDINE NEG (NEG)
[2021-02-02 15:54] LABS: AMPHETAMINE/METHAMPHETAMINE NEG (NEG); CLARITY,URINE CLEAR; COLOR,URINE YELLOW
[2021-02-02 15:55] LABS: BACTERIA,URINE 0 /HPF (0-FEW); BILIRUBIN,URINE NEG (NEG); GLUCOSE,URINE NEG (NEG); NITRITE,URINE NEG (NEG); UROBILINOGEN,URINE 0.2 mg/dL (0.2 mg/dL); WBC,URINE 0 /HPF (0-4)
[2021-02-02] MEDS ORDERED: MAGNESIUM SULFATE 2GM 50 ML IV ONE (16:30)
[2021-02-02] MEDS ORDERED: POTASSIUM CHLORIDE 20 MEQ TABLET.ER. PO ONE (16:30)
[2021-02-02] MEDS ORDERED: MVI, ADULT NO.4 WITH VIT K 10 ML, FOLIC ACID INJ 1 MG, THIAMINE INJ 100 MG in IV NORMAL... IV ONE (16:30)
[2021-02-02] MEDS ORDERED: POTASSIUM CHLORIDE 20MEQ 100 ML IV ONE (17:00)
[2021-02-02 19:15] VITALS: BP 173/91
[2021-02-02] MEDS ORDERED: METF500T16 PO (19:48)
[2021-02-02] MEDS ORDERED: LOSA1TAB22 PO (19:48)
[2021-02-02] MEDS ORDERED: ATOR20TA58 PO (19:48)
[2021-02-02] MEDS ORDERED: ZOLP10TA PO (20:39)
[2021-02-02] MEDS ORDERED: ZOLPIDEM 5 MG TABLET. PO PRN (20:45)
[2021-02-02] MEDS ORDERED: OLANZapine 10 MG TABLET PO SCH (21:00)
[2021-02-02 23:00] VITALS: BP 169/84
[2021-02-03 05:58] VITALS: BP 170/89
[2021-02-03] MEDS ORDERED: PANTOPRAZOLE 40 MG TABLET. PO SCH (07:30)
[2021-02-03 07:54] LABS: BASO % 1 % (0-3); EOS # 0.1 x10^3/uL (0.0-0.7); EOS % 2 % (0-3); HEMATOCRIT 43.7 % (39.0-53.0); HEMOGLOBIN 15.3 g/dL (13.0-17.5); LYMPH # 2.1 x10^3/uL (1.0-4.8); LYMPH % 38 % (24-48); MEAN CORPUSCULAR HEMOGLOBIN 35 pg (25-35); MEAN CORPUSCULAR HGB CONC 35 g/dL (31-37); MEAN CORPUSCULAR VOLUME 101 fL (79-100); MONO # 0.5 x10^3/uL (0.0-1.1); MONO % 9 % (0-9); NEUT # 2.8 x10^3uL (1.8-7.7); NEUT % 52 % (31-73); PLATELET COUNT 158 x10^3/uL (140-400); RED BLOOD COUNT 4.34 x10^6/uL (4.30-5.70); RED CELL DISTRIBUTION WIDTH 13.7 % (11.5-14.5); WHITE BLOOD COUNT 5.5 x10^3/uL (4.0-11.0)
[2021-02-03 08:08] LABS: ALBUMIN 3.2 g/dL (3.4-5.0); ALBUMIN/GLOBULIN RATIO 0.8 (1.0-1.7); CALCIUM 8.2 mg/dL (8.5-10.1); CREATININE 1.1 mg/dL (0.7-1.3); GFR 68.8; POTASSIUM 3.4 mmol/L (3.5-5.1); TOTAL BILIRUBIN 1.1 mg/dL (0.2-1.0); TOTAL PROTEIN 7.2 g/dL (6.4-8.2)
[2021-02-03 08:39] VITALS: BP 170/89
[2021-02-03] MEDS ORDERED: hydroCHLOROthiazide 25 MG TABLET. PO SCH (09:00)
[2021-02-03] MEDS ORDERED: POTASSIUM CHLORIDE 10 MEQ TABLET.ER. PO SCH (09:00)
[2021-02-03] MEDS ORDERED: metFORMIN 500 MG TABLET PO SCH (09:00)
[2021-02-03] MEDS ORDERED: DULoxetine HCL 60 MG CAPSULE.DR PO SCH (09:00)
[2021-02-03] MEDS ORDERED: FLU VACC QUAD 21-22 (6MOS+) PF 0.5 ML SYRINGE. VAX IM ONE (09:00)
[2021-02-03] MEDS ORDERED: ATORVASTATIN CALCIUM 20 MG TABLET PO SCH (09:00)
[2021-02-03] MEDS ORDERED: LOSARTAN 50 MG TABLET. PO SCH (09:00)
--- NOTE | 2021-02-03 14:22 | SSS ---
DATE OF SERVICE: 02/03/2021 ADMIT DATE: 02/02/2021 NO DICTATION. ANNALISA/JAIRON DR: ANNALISA/ferny TID: [id number]
--- NOTE | 2021-02-03 15:07 | SSS ---
DATE OF SERVICE: 02/03/2021 ADMIT DATE: 02/02/2021 HISTORY OF PRESENT ILLNESS: The patient is a 60-year-old male patient who presented to the Emergency Room with alcohol abuse. He is requesting to be admitted for rehabilitation. He states that he is a daily drinker, and drinks a pint of whiskey daily. He also smokes 1 to 1-1/2 pack a day of cigarettes. According to the nurse practitioner in the Emergency Room, the patient had alcohol withdrawal symptoms in the past. He denied, however, any seizures. He reports anxiety and irritability at this time. He denied any homicidal or suicidal ideation. The last drink was last Thursday. He was extensively investigated in the Emergency Room and was found to be hyponatremic, hypokalemic as well as hypomagnesemic and was admitted, was started on a banana bag, alcohol withdrawal protocol with a plan to consult the PACT team as well as our public health social worker to see if there are any rehabilitation centers whether inpatient or outpatient. PAST MEDICAL HISTORY: Significant for anxiety and bipolar disorder, depression, type 2 diabetes, hypothyroidism, gastroesophageal reflux disease, hypertension, fatty liver, peripheral neuropathy, type 2 diabetes mellitus and obviously alcoholism. PAST SURGICAL HISTORY: Significant for tracheostomy tube placement as well as gastrostomy tube placement. FAMILY HISTORY: His mother was diagnosed with myocardial infarction in her 50s and she underwent a coronary artery bypass graft surgery and she in her 70s because of mesothelioma. His father in his 70s because of mesothelioma. He has 1 brother who is alcoholic and 3 sisters that are healthy. SOCIAL HISTORY: He is , has a son and a daughter. He smokes a pack to pack and a half of cigarettes. He drinks a pint of whiskey. He is a light truck driver, driving locally. REVIEW OF SYSTEMS: As per history of present illness. PHYSICAL EXAMINATION: GENERAL: On arrival to the Emergency Room, he looked well and was clearly in no apparent respiratory distress. There was no pallor, jaundice, cyanosis or thyromegaly. No jugular venous distention. No limb edema. VITAL SIGNS: His heart rate was 98, blood pressure is 170/108, temperature was 98, respiratory rate was 18 and oxygen saturation was 98% on room air. HEAD, EYES, EARS, NOSE, AND THROAT: Normocephalic, atraumatic. NECK: Supple. HEART: Showed normal first and second heart sounds. No gallop or murmur. CHEST: Clear to auscultation. No crepitation or rhonchi. ABDOMEN: Distended, soft, nontender. NEUROLOGIC: He was grossly intact. LABORATORY DATA: His lab work on arrival showed his white cell count was 8400, hemoglobin 16.9, hematocrit 47.6, MCV 100 and platelet count 202,000. His initial chemistry showed a serum sodium 125, potassium 3.2, chloride 91, bicarbonate 20, anion gap of 14, BUN 27, creatinine 1.3. Estimated GFR was 56 mL per minute. His glucose was 167. His calcium was 8.2, magnesium was 1.7. Total bilirubin is normal. AST, alkaline phosphatase slightly elevated. ALT is normal. His total protein 7.9, albumin was 3.6. His serum lipase was 146. His urinalysis essentially unremarkable and toxic screen was negative. In fact, his blood alcohol level was less than 10 mg/dL. ASSESSMENT AND PLAN: The patient was admitted and started on alcohol withdrawal protocol. He was continued on his home medication, and we replenished his potassium and magnesium. When I saw him this afternoon, the patient was initially willing to wait for the PACT team and stay overnight for public health social worker to see if they have inpatient or outpatient programs for alcohol rehabilitation; however, he decided he would like to go home, and therefore, I discharged home to follow with his primary care physician, as all his electrolytes have been replenished. When I saw him this evening, he looked well and was clearly in no apparent respiratory distress. His heart rate was 100, blood pressure is 170/89, temperature 97.7, respiratory rate was 18 and oxygen saturation was 97%. The rest of clinical exam stable. His lab work this morning showed that his serum sodium has improved to 134, potassium went up to 3.4, chloride 101, bicarbonate 24, anion gap of 9, BUN 16, creatinine 1.1. Estimated GFR was 68 mL per minute. His glucose 154, calcium was 8.2. Total bilirubin, AST, and alkaline phosphatase slightly elevated. ALT is normal. His magnesium was 2.2 and TSH was slightly elevated at 6.849. The patient was discharged home to continue on his atorvastatin calcium 20 mg at bedtime, duloxetine 60 mg daily, losartan/hydrochlorothiazide 100/25 one tablet daily, metformin 500 mg daily, olanzapine 10 mg at bedtime, omeprazole 40 mg daily and potassium chloride 10 mEq daily, Ambien 10 mg at bedtime. FINAL DISCHARGE DIAGNOSES: 1. Alcoholism and alcohol dependence. 2. Hyponatremia, resolved. 3. Hypokalemia, resolved. 4. Hypomagnesemia. 5. The patient has a multitude of other medical problems including: A. Hypertension. B. Hyperlipidemia. C. Type 2 diabetes mellitus. D. Fatty liver. E. Peripheral neuropathy. EVERETTE/NAVIN DR: Joyce TID: [id number]
== END 2021-02-03 14:15 | disposition home or self-care (01) ==
LOC: ER 13:12 → INTOOBSV 16:41 → 1 SOUTH 16:41 → ER 19:09
PROVIDERS: ADMIT Internal Medicine; ATTEND Internal Medicine
DX: F10.230 Alcohol dependence with withdrawal, uncomplicated (principal); Z20.822 Contact with and (suspected) exposure to COVID-19; E87.1 Hypo-osmolality and hyponatremia; E87.6 Hypokalemia; E83.42 Hypomagnesemia; I10 Essential (primary) hypertension; E78.5 Hyperlipidemia, unspecified; E11.9 Type 2 diabetes mellitus without complications; K76.0 Fatty (change of) liver, not elsewhere classified; G62.9 Polyneuropathy, unspecified; F31.9 Bipolar disorder, unspecified; F41.9 Anxiety disorder, unspecified; E03.9 Hypothyroidism, unspecified; K21.9 Gastro-esophageal reflux disease without esophagitis; R56.9 Unspecified convulsions; F41.0 Panic disorder [episodic paroxysmal anxiety]; F17.210 Nicotine dependence, cigarettes, uncomplicated; Z79.899 Other long term (current) drug therapy; Z98.890 Other specified postprocedural states; Z79.84 Long term (current) use of oral hypoglycemic drugs
CPT/HCPCS: 36415; 80053; 80307; 81001; 82947; 83690; 83735; 84443; 85025; 87426; 96365; 96366; 96367; 96375; 99284; 99406; G0378; G0480; J2060; J3475; J3480; J7030; U0003; G0379

== ENCOUNTER 2021-02-12 03:16 | Emergency (ER) | payer BC ==
[~2021-02-12] VITALS: Ht 182.9 cm; Wt 95.4 kg
[~2021-02-12 03:16] MED LIST changes: +ATOR20TA58 PO
--- NOTE | 2021-02-12 03:18 | PHYS DOC ---
Past History Past Medical History: Diabetes, GERD, Hypertension (LISSY LEMUS MD) Past Surgical History: No Surgical History (LISSY LEMUS MD) Alcohol Use: Occasionally Drug Use: None (LISSY LEMUS MD) General Adult HPI: HPI: "I feel like crap... I been binge drinking for the last 3 days... I drank 1/5 on Thursday fifth on Thursday 1/5 on Thursday and started another fifth of Gray mist today... I have been drinking too damn much.. I feel like I am going to puke.. " Patient is a 60 year old male who presents with above history and complaints of alcohol abuse past 3 days. Patient has long history of alcohol abuse and prior ED presentations for same complaint. Patient has past medical history significant for anxiety, bipolar disorder, depression, diabetes, hypothyroidism, gastroesophageal reflux, hypertension, fatty liver, peripheral neuropathy secondary to alcohol abuse, and diabetes, hyponatremia, hypokalemia, hypomagnesium, intestinal adhesions and nicotine addiction. Patient has past surgical history of tracheostomy and gastrostomy tube placements. Patient normally follows with Dr. Bradshaw as a primary (LISSY LEMUS MD) Review of Systems: Review of Systems: Constitutional: Denies fever or chills Eyes: Denies change in visual acuity HENT: Denies nasal congestion or sore throat Respiratory: Denies cough or shortness of breath Cardiovascular: Denies chest pain or edema GI: Complains of GERD abdominal pain, nausea, vomiting,. Denies bloody stools or diarrhea : Denies dysuria Musculoskeletal: Denies back pain or joint pain Integument: Denies rash Neurologic: Denies headache, focal weakness or sensory changes Endocrine: Denies polyuria or polydipsia Lymphatic: Denies swollen glands Psychiatric: Denies depression or anxiety (LISSY LEMUS MD) Family History: Family History: Significant for mother AR 50s of mesothelioma, father of mesothelioma, has 1 brother is alcoholic and 3 sisters who are healthy. (LISSY LEMUS MD) Current Medications: Current Meds: See nursing for home meds (LISSY LEMUS MD) Allergies: Allergies: Allergies Coded Allergies Type Severity Reaction Last Updated Verified No Known Drug Allergies 10/10/13 No (LISSY LEMUS MD) Physical Exam: PE: Constitutional: Moderate acute distress, intoxicated appearance. [] HENT: Normocephalic, atraumatic, bilateral external ears normal, oropharynx dry, no oral exudates, nose normal. [] Eyes: PERRLA, EOMI, conjunctiva normal, no discharge. [] Neck: Normal range of motion, no tenderness, supple, no stridor. [] Cardiovascular tachycardia,:Heart rate regular rhythm, no murmur [] Lungs & Thorax: Bilateral breath sounds equal at apex is with scattered wheezes on auscultation [] Abdomen: Bowel sounds decreased, soft, generalized tenderness, no masses, no pulsatile masses. Rebound epigastric, multiple surgery scars, Skin: Warm, dry, no erythema, no rash. Poor turgor. Back: No tenderness, no CVA tenderness. [] Extremities: No tenderness, no cyanosis, no clubbing, ROM intact, no edema. No cording appreciated Neurologic: Alert and oriented X 3, moves all extremities on request, distal sensory artery decreased plantar sensation,, mild discoordination. Psychologic: Affect anxious, judgement normal, mood normal. [] (LISSY LEMUS MD) Current Patient Data: Labs: Laboratory Tests Test 02/12/21 03:30 White Blood Count 7.9 x10^3/uL Red Blood Count 4.71 x10^6/uL Hemoglobin 16.6 g/dL Hematocrit 47.3 % Mean Corpuscular Volume 100 fL Mean Corpuscular Hemoglobin 35 pg Mean Corpuscular Hemoglobin Concent 35 g/dL Red Cell Distribution Width 13.7 % Platelet Count 218 x10^3/uL Neutrophils (%) (Auto) 31 % Lymphocytes (%) (Auto) 58 % Monocytes (%) (Auto) 9 % Eosinophils (%) (Auto) 1 % Basophils (%) (Auto) 1 % Neutrophils # (Auto) 2.5 x10^3uL Lymphocytes # (Auto) 4.6 x10^3/uL Monocytes # (Auto) 0.7 x10^3/uL Eosinophils # (Auto) 0.1 x10^3/uL Basophils # (Auto) 0.1 x10^3/uL Sodium Level 134 mmol/L Potassium Level 3.1 mmol/L Chloride Level 95 mmol/L Carbon Dioxide Level 29 mmol/L Anion Gap 10 Blood Urea Nitrogen 20 mg/dL Creatinine 1.3 mg/dL Estimated GFR (Cockcroft-Gault) 56.7 Glucose Level 170 mg/dL Calcium Level 8.5 mg/dL Magnesium Level 1.7 mg/dL Total Bilirubin 0.4 mg/dL Direct Bilirubin 0.1 mg/dL Aspartate Amino Transf (AST/SGOT) 56 U/L Alanine Aminotransferase (ALT/SGPT) 50 U/L Alkaline Phosphatase 146 U/L Creatine Kinase 109 U/L Troponin I High Sensitivity 8 ng/L KL-Lai-D-Type Natriuretic Peptide 20 pg/mL Total Protein 7.9 g/dL Albumin 3.4 g/dL Lipase 99 U/L Ethyl Alcohol Level 139 mg/dL Current Medications Medications (Trade) Dose Ordered Sig/José Miguel Route PRN Reason Start Time Stop Time Status Last Admin Dose Admin Sodium Chloride 1,000 ml @ 1,000 mls/hr Q1H IV 02/12/21 03:30 02/12/21 04:29 DC 02/12/21 03:56 Sodium Chloride 90 meq/Potassium Chloride 60 meq/ Potassium Phosphate 13.6 mmol/Magnesium Sulfate 10 meq/ Calcium Gluconate 10 meq/ Multivitamins/ Minerals 10 ml/ Zinc/Copper/ Manganese/ Selenium 1 ml/ Total Parenteral Nutrition/Amino Acids/Dextrose/ Fat Emulsion Intravenous 1,512 ml @ 63 mls/hr TPN CONT IV 02/12/21 22:00 02/13/21 21:59 UNV Thiamine HCl (Thiamine Im) 100 mg 1X ONCE IM 02/12/21 03:30 02/12/21 03:31 DC 02/12/21 03:30 Ondansetron HCl (Zofran) 8 mg 1X ONCE IVP 02/12/21 04:00 02/12/21 04:01 DC 02/12/21 03:57 Famotidine (Pepcid Vial) 20 mg 1X ONCE IVP 02/12/21 04:00 02/12/21 04:01 DC 02/12/21 03:57 Potassium Chloride 100 ml @ 50 mls/hr Q2H IV 02/12/21 04:15 02/12/21 08:14 02/12/21 06:15 Magnesium Sulfate 50 ml @ 25 mls/hr 1X ONCE IV 02/12/21 06:30 02/12/21 08:29 02/12/21 06:34 (JANNIE ROBERTSON DO) EKG: EKG: Dilatation EKG shows a sinus rhythm at 81 bpm. No acute morphology. Time of EKG is 408 hours [] (LISSY LEMUS MD) Radiology/Procedures: Radiology/Procedures: [][address] [address] IMAGING REPORT Signed PATIENT: SYDNEE BURNETTE LACCOUNT: [id number] : 1960 LOCATION: ER AGE: 60 SEX: M EXAM STATUS: REG ER ORD. PHYSICIAN: LISSY LEMUS MD REASON: dyspnea PROCEDURE: PORTABLE CHEST 1V XR CHEST 1V Clinical History: Reason: dyspnea / Spl. Instructions: / History: Technique: AP view of the chest was obtained at 02/12/2021 4:18 AM. Comparison: None. Findings: The cardiomediastinal silhouette is normal. The pulmonary vasculature is normal. Reticular opacities of lungs are likely chronic pulmonary fibrosis. Impression: No evidence of an acute cardiopulmonary process. Electronically signed by: Brady Pierre III, MD (02/12/2021 4:38 AM) [facility] DICTATED AND SIGNED BY: BRADY PIERRE III, MD DATE: 02/12/217 CC: DHIRAJ BRADSHAW MD; LISSY LEMUS MD ~MTH0 0 (LISSY LEMUS MD) Heart Score: C/O Chest Pain: N/A Risk Factors: Risk Factors: DM, Current or recent (<one month) smoker, HTN, HLP, family history of CAD, obesity. Risk Scores: Score 0 - 3: 2.5% MACE over next 6 weeks - Discharge Home Score 4 - 6: 20.3% MACE over next 6 weeks - Admit for Clinical Observation Score 7 - 10: 72.7% MACE over next 6 weeks - Early Invasive Strategies (LISSY LEMUS MD) C/O Chest Pain: No (JANNIE ROBERTSON DO) Course & Med Decision Making: Course & Med Decision Making Pertinent Labs and Imaging studies reviewed. (See chart for details) Push fruit juices. Clear fluids x 48 hrs. Stop or at least reduce your alcohol intake. Endorse to Dr. Robertson at shift change. He will make final disposition once potassium supplemented. Impression: 1. Chronic alcohol abuse-denies alcohol level at 139 2. Mild hyponatremia at 134 3. Mild hypokalemia 3.1 [] (LISSY LEMUS MD) Course & Med Decision Making I assumed care of patient after comprehensive signout from off going physician I reviewed entirety of ER work-up and repeated certain aspects of history and physical examination Patient with electrolyte abnormalities due to ongoing alcohol dependence that were replaced today. Alcohol cessation advised, discussed need to safely do this and to use resources given today and during recent hospitalizations/ER visits to do this safely Strict return precautions discussed with good understanding by patient, all questions and concerns addressed prior to ER departure (JANNIE ROBERTSON DO) Dragon Disclaimer: Dragon Disclaimer: This electronic medical record was generated, in whole or in part, using a voice recognition dictation system. (LISSY LEMSU MD) Departure Departure: Impression: Primary Impression: Alcohol dependence Additional Impression: Electrolyte abnormality Disposition: 01 HOME / SELF CARE / HOMELESS Condition: IMPROVED Referrals: DHIRAJ BRADSHAW MD (PCP) Additional Instructions: As discussed prior to ER departure, your vitals, physical examination and comprehensive ER work-up were nonconcerning for any emergent or surgical issues As disclosed prior to departure, you had various electrolyte abnormalities that included low sodium, potassium, chloride and magnesium levels that are likely due to your ongoing alcohol dependence You should stop drinking. You should return to the ED if you develop any new or concerning symptoms. As abrupt cessation of alcohol can be fatal, you should refer to the resource sheet for help in stopping your addiction with help in a controlled environment. LISSY LEMUS MD Feb 12, 2021 03:18 JANNIE ROBERTSON DO Feb 12, 2021 07:04
[2021-02-12] MEDS ORDERED: THIAMINE IM 200 MG/2 ML VIAL. IM ONE (03:30)
[2021-02-12] MEDS ORDERED: IV NORMAL SALINE 1,000ML 1,000 ML IV SCH (03:30)
[2021-02-12] MEDS ORDERED: ONDANSETRON PF 4 MG/2 ML VIAL. IVP ONE (04:00)
[2021-02-12] MEDS ORDERED: FAMOTIDINE 20 MG/2 ML VIAL IVP ONE (04:00)
[2021-02-12 04:01] LABS: BASO # 0.1 x10^3/uL (0.0-0.2); BASO % 1 % (0-3); EOS # 0.1 x10^3/uL (0.0-0.7); EOS % 1 % (0-3); HEMATOCRIT 47.3 % (39.0-53.0); HEMOGLOBIN 16.6 g/dL (13.0-17.5); LYMPH # 4.6 x10^3/uL (1.0-4.8); LYMPH % 58 % (24-48); MEAN CORPUSCULAR HEMOGLOBIN 35 pg (25-35); MEAN CORPUSCULAR HGB CONC 35 g/dL (31-37); MEAN CORPUSCULAR VOLUME 100 fL (79-100); MONO # 0.7 x10^3/uL (0.0-1.1); MONO % 9 % (0-9); NEUT # 2.5 x10^3uL (1.8-7.7); NEUT % 31 % (31-73); PLATELET COUNT 218 x10^3/uL (140-400); RED BLOOD COUNT 4.71 x10^6/uL (4.30-5.70); RED CELL DISTRIBUTION WIDTH 13.7 % (11.5-14.5); WHITE BLOOD COUNT 7.9 x10^3/uL (4.0-11.0)
[2021-02-12 04:03] LABS: CALCIUM 8.5 mg/dL (8.5-10.1); CREATININE 1.3 mg/dL (0.7-1.3); GFR 56.7; POTASSIUM 3.1 mmol/L (3.5-5.1)
[2021-02-12 04:13] LABS: ALBUMIN 3.4 g/dL (3.4-5.0); DIRECT BILIRUBIN 0.1 mg/dL (0.0-0.2); MAGNESIUM 1.7 mg/dL (1.8-2.4); TOTAL BILIRUBIN 0.4 mg/dL (0.2-1.0); TOTAL PROTEIN 7.9 g/dL (6.4-8.2)
--- NOTE | 2021-02-12 04:16 | EKG ---
[address] [address] Test Date: 2021-02-12 Test Time: 04:08:50 Pat Name: SYDNEE BURNETTE Department: Room: Gender: M Marker Hand: : 1960 Requested By: LISSY LEMUS Order Number: [id number] Reading MD: Berny Dhillon Measurements Intervals [place] Rate: 81 P: 52 WA: 178 QRS: 4 QRSD: 84 T: 32 QT: 384 QTc: 447 Interpretive Statements SINUS RHYTHM NORMAL ECG RI6.02 Compared to ECG 10/06/2017 12:53:16 No significant changes Electronically Signed On 02-12-2021 14:16:12 [employer] by Berny Dhillon
[2021-02-12] MEDS: POTASSIUM CHLORIDE 20MEQ 100 ML IV SCH ×2 (04:34→06:15)
--- NOTE | 2021-02-12 04:41 | RAD ---
XR CHEST 1V Clinical History: Reason: dyspnea / Spl. Instructions: / History: Technique: AP view of the chest was obtained at 02/12/2021 4:18 AM. Comparison: None. Findings: The cardiomediastinal silhouette is normal. The pulmonary vasculature is normal. Reticular opacities of lungs are likely chronic pulmonary fibrosis. Impression: No evidence of an acute cardiopulmonary process. Electronically signed by: Hernan Em III, MD (02/12/2021 4:38 AM) [facility]
[2021-02-12] MEDS ORDERED: MAGNESIUM SULFATE 2GM 50 ML IV ONE (06:30)
[2021-02-12 06:56] LABS: BARBITURATES NEG (NEG); BENZODIAZEPINES NEG (NEG); CANNABINOIDS NEG (NEG); COCAINE NEG (NEG); METHADONE NEG (NEG); OPIATES NEG (NEG); PHENCYCLIDINE NEG (NEG)
[2021-02-12 07:01] LABS: AMPHETAMINE/METHAMPHETAMINE NEG (NEG)
[2021-02-12 07:16] LABS: BILIRUBIN,URINE NEG (NEG); CLARITY,URINE CLEAR; COLOR,URINE YELLOW; GLUCOSE,URINE NEG (NEG)
[2021-02-12 07:17] LABS: BACTERIA,URINE 0 /HPF (0-FEW); NITRITE,URINE NEG (NEG); SQUAMOUS EPITHELIAL CELL,UR MOD /LPF; UROBILINOGEN,URINE 0.2 mg/dL (0.2 mg/dL); WBC,URINE RARE /HPF (0-4)
[2021-02-12 08:25] VITALS: BP 160/96
[2021-02-12] MEDS ORDERED: TOTAL PARENTERAL NUTRITION 656.4987 ML, AMINO ACID 15% 80 GM, DEXTROSE 50% WATER 500 ML... IV SCH (22:00)
== END 2021-02-12 08:36 | disposition home or self-care (01) ==
LOC: ER 03:16
DX: F10.20 Alcohol dependence, uncomplicated (principal); E87.8 Other disorders of electrolyte and fluid balance, not elsewhere classified; R11.2 Nausea with vomiting, unspecified; R10.84 Generalized abdominal pain; E87.1 Hypo-osmolality and hyponatremia; E87.6 Hypokalemia; K21.9 Gastro-esophageal reflux disease without esophagitis; I10 Essential (primary) hypertension; E11.9 Type 2 diabetes mellitus without complications; F31.9 Bipolar disorder, unspecified; F41.9 Anxiety disorder, unspecified; Y90.6 Blood alcohol level of 120-199 mg/100 ml
CPT/HCPCS: 36415; 71045; 80048; 80076; 80307; 81001; 82550; 83690; 83735; 83880; 84443; 84484; 85025; 93005; 96361; 96365; 96366; 96368; 96372; 96375; 99285; G0480; J2405; J3475; J3480; J3490; J7030

== ENCOUNTER 2021-06-10 12:21 | Emergency (ER) | payer BC ==
[~2021-06-10] VITALS: Ht 182.9 cm; Wt 91.8 kg
--- NOTE | 2021-06-10 12:25 | PHYS DOC ---
Past History Past Medical History: Diabetes, GERD, Hypertension Past Surgical History: No Surgical History Alcohol Use: Heavy Drug Use: None Adult General HPI HPI Patient is a 61 year old male who presents with alcohol problems. Patient comes to the ER today requesting medical clearance. He is checking himself into an inpatient alcohol detox unit today and was recommended to come to the ER. He complains of feeling very anxious and having some shakiness. His last drink of alcohol was at 1 AM, about 11.5 hours ago. Patient states he has been drinking excessively over the last couple of days and has drank a full gallon of hard liquor in the last 48 hours. Normally would drink 1 pint of liquor daily. Was last in a detox unit in January 2021. Does not have history of seizures that he is aware of but does have withdrawal symptoms when he stops drinking. Review of systems is otherwise negative. No recent viral symptoms. No other chronic health issues. Review of Systems Review of Systems Constitutional: Denies fever or chills Eyes: Denies change in visual acuity, redness, or eye pain HENT: Denies nasal congestion or sore throat Respiratory: Denies cough or shortness of breath Cardiovascular: No additional information not addressed in HPI GI: Denies abdominal pain. Has mild nausea but no vomiting : Denies dysuria or hematuria Musculoskeletal: Denies back pain Integument: Denies rash or skin lesions Neurologic: Denies focal neurologic complaints Endocrine: Denies polyuria or polydipsia All other systems were reviewed and found to be within normal limits, except as documented in this note. Allergies Allergies Allergies Coded Allergies Type Severity Reaction Last Updated Verified No Known Drug Allergies 10/10/13 No Physical Exam Physical Exam Constitutional: Well developed, well nourished, no acute distress, non-toxic appearance, mildly tremulous HENT: Normocephalic, atraumatic, bilateral external ears normal, oropharynx moist, no oral exudates, nose normal. Eyes: PERRLA, EOMI, conjunctiva normal Neck: Normal range of motion Cardiovascular: Mildly tachycardic, regular rhythm Lungs & Thorax: Bilateral breath sounds clear to auscultation [] Abdomen: Bowel sounds normal, soft, no tenderness, no masses, no pulsatile masses. Skin: Warm, dry, no erythema, no rash. Back: Normal ROM Neurologic: Alert and oriented X 3, normal motor function, normal sensory function, no focal deficits noted Psychologic: Affect normal, judgement normal, mood normal. EKG EKG [] Radiology/Procedures Radiology/Procedures [] Heart Score C/O Chest Pain: N/A Risk Factors: Risk Factors: DM, Current or recent (<one month) smoker, HTN, HLP, family history of CAD, obesity. Risk Scores: Risk Factors: DM, Current or recent (<one month) smoker, HTN, HLP, family history of CAD, obesity. Course & Med Decision Making Course & Med Decision Making Pertinent Labs and Imaging studies reviewed. (See chart for details) 12:30: Seen and examined on arrival to his room. Primarily requesting medical clearance but does feel very anxious and has mild tremors. Last drink was about 12 hours earlier. Today, we will check basic labs, give fluids, give Ativan for symptom relief. 14:00: ED summary: Patient came to the ER for medical clearance prior to entering detox for alcohol. Basic labs are completed. No acute findings. Serum alcohol level was 48. He was mildly tremulous on arrival. Following 2 doses of Ativan, he was feeling much improved. Tremors had entirely resolved. Nausea was improved. Stable for discharge from the ER and his will drive him directly to the planned detox center. Return precautions discussed and he will come back to the ER for any severely worsening symptoms. Dragon Disclaimer Dragon Disclaimer This electronic medical record was generated, in whole or in part, using a voice recognition dictation system. Departure Departure: Impression: Primary Impression: Alcohol dependence Additional Impression: Alcohol withdrawal Disposition: HOME / SELF CARE / HOMELESS Condition: IMPROVED Referrals: DHIRAJ ESQUIVEL MD (PCP) Patient Instructions: Alcohol Problems Problem Qualifiers TITUS JACQUES DO Jun 10, 2021 12:25
[2021-06-10] MEDS ORDERED: IV NORMAL SALINE 1,000ML 1,000 ML IV ONE (12:30)
[2021-06-10 13:01] VITALS: BP 119/111
[2021-06-10 13:09] LABS: BASO # 0.1 x10^3/uL (0.0-0.2); BASO % 2 % (0-3); EOS % 1 % (0-3); HEMATOCRIT 48.3 % (39.0-53.0); HEMOGLOBIN 16.5 g/dL (13.0-17.5); LYMPH # 2.1 x10^3/uL (1.0-4.8); LYMPH % 45 % (24-48); MEAN CORPUSCULAR HEMOGLOBIN 34 pg (25-35); MEAN CORPUSCULAR HGB CONC 34 g/dL (31-37); MEAN CORPUSCULAR VOLUME 100 fL (79-100); MONO # 0.3 x10^3/uL (0.0-1.1); MONO % 6 % (0-9); NEUT # 2.1 x10^3uL (1.8-7.7); NEUT % 46 % (31-73); PLATELET COUNT 172 x10^3/uL (140-400); RED BLOOD COUNT 4.85 x10^6/uL (4.30-5.70); WHITE BLOOD COUNT 4.6 x10^3/uL (4.0-11.0)
[2021-06-10 13:27] LABS: CALCIUM 8.3 mg/dL (8.5-10.1); CREATININE 1.1 mg/dL (0.7-1.3); GFR 68.5; POTASSIUM 3.4 mmol/L (3.5-5.1)
[2021-06-10 13:34] LABS: ALBUMIN 3.4 g/dL (3.4-5.0); ALBUMIN/GLOBULIN RATIO 0.8 (1.0-1.7); TOTAL BILIRUBIN 0.5 mg/dL (0.2-1.0); TOTAL PROTEIN 7.5 g/dL (6.4-8.2)
[2021-06-10] MEDS ORDERED: DIAZ5TAB PO ×4 (13:42→14:10)
== END 2021-06-10 13:45 | disposition home or self-care (01) ==
LOC: ER 12:21
DX: F10.239 Alcohol dependence with withdrawal, unspecified (principal); Y90.2 Blood alcohol level of 40-59 mg/100 ml; E11.9 Type 2 diabetes mellitus without complications; K21.9 Gastro-esophageal reflux disease without esophagitis; I10 Essential (primary) hypertension; Z20.822 Contact with and (suspected) exposure to COVID-19
CPT/HCPCS: 80053; 85025; 87426; 96361; 96374; 96376; 99284; G0480; J2060; J7030